=== PATIENT | female | born 1965 | race Caucasian/White ===

== ENCOUNTER 2016-12-08 19:27 | Emergency (ER) | payer BC, OTHER ==
--- NOTE | 2016-12-08 20:29 | EDDOCDS ---
Nurse's Notes [facility] Name: Makenzie Koenig Age: 51 yrs Sex: Female : 1965 Arrival Date: 12/08/2016 Time: 19:27 Bed TR7 Private MD: Jared Rosas H. Diagnosis: Acute upper respiratory infections of multiple and unspecified sites;Viral infection, unspecified Presentation: 12/08 19:38 Presenting complaint: Patient states: throat pain, sinus pain, cough since 11/24. Pt ttb was on Levaquin with little improvement. States, "crackles in bases". Adult Sepsis Screening: The patient does not have new or worsening altered mentation. Patient's respiratory rate is less than 22. Systolic blood pressure is greater than 100. Patient has a qSOFA score of 0- Negative Sepsis Screen. Suicide/Homicide risk assessment- the patient denies having any suicidal and/or homicidal ideations and does not present with any other emotional, behavioral or mental health complaints. Status: Patient is not a assistant service manager or dependent. Transition of care: patient was not received from another setting of care. 19:38 Acuity: TREMAINE Level 4 ttb 19:38 Method Of Arrival: Walkin/Carried/Asstd ttb Triage Assessment: 19:41 General: Appears in no apparent distress, uncomfortable, well nourished, well groomed, ttb Behavior is appropriate for age, cooperative, pleasant. Pain: Denies pain. HIV screening NA for this visit Offered previously. Neurological: Level of Consciousness is awake, alert. EENT: Reports nasal congestion nasal discharge. Cardiovascular: Chest pain is denied. Respiratory: Airway is patent Respiratory effort is even, shallow, Reports shortness of breath on exertion cough that is non-productive, the patient has mild shortness of breath. Respiratory: Onset: The symptoms/episode began/occurred end of October. GI: Denies nausea, vomiting, pain. Derm: Skin is normal. 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 Levaquin 500 mg Oral tab 1 tab once daily (Last dose: 12/08/2016 14:00) 2. lisinopril-hydrochlorothiazide 10-12.5 mg oral tab 1 tab once daily (Last dose: 12/08/2016 17:00) 3. multivitamin Oral tab 1 tab daily (Last dose: 12/08/2016) 4. Calcium Citrate Unknown Oral Unknown daily (Last dose: 12/08/2016 07:00) 5. ibuprofen 600 mg oral tab every 6 hours (Last dose: 12/08/2016 15:00) - PMHx: Hypertension; Pneumonia; - PSHx: none; - Social history: Smoking status: Patient states was never smoker of tobacco. Patient uses alcohol occasionally. Patient/guardian denies using street drugs, No barriers to communication noted, The patient speaks fluent Greek, Speaks appropriately for age. - Family history: Not pertinent. - : The pt / caregiver states he / she is not on anticoagulants. Home medication list is obtained from the patient. - Exposure Risk Screening:: None identified. Screenin:27 Screening information is obtained from the patient. Fall risk: No risks identified. jf3 Assistance ADL's: requires no assistance with activities of daily living. Abuse/DV Screen: The patient / caregiver reports he/she is: not in a situation that causes fear, pain or injury. Nutritional screening: No deficits noted. Advance Directives: Currently, there is no health care proxy. home support is adequate. Assessment: 20:27 General: Appears in no apparent distress, comfortable, Behavior is cooperative. jf3 Neurological: Level of Consciousness is awake, alert, Oriented to person, place, time. Cardiovascular: Capillary refill < 3 seconds Chest pain is denied. Respiratory: Airway is patent Respiratory effort is even, unlabored, Respiratory pattern is regular, symmetrical. Derm: Skin is pink, warm & dry. Vital Signs: 19:29 BP 167 / 109 LA Sitting (auto/reg); Pulse 85; Resp 18; Temp 98.8(O); Pulse Ox 100% ; cmb Weight 77.11 kg; Height 5 ft. 3 in. (160.02 cm); Pain 0/10; 19:29 BP 171 / 87 RA Sitting (auto/); cmb 19:29 Body Mass Index 30.11 (77.11 kg, 160.02 cm) cmb Vitals: 19:29 Log In Time: December 08, 2016 at 19:27. cmb ED Course: 19:28 Patient visited by Yadira Simon. cmb 19:28 Patient moved to Waiting cmb 19:29 Jared Rosas is Private Physician. cmb 19:32 Patient moved to Pre RCE cmb 19:39 Triage Initiated ttb 19:43 Patient visited by Nelida Marie, EVITA. ttb 19:43 Chris Mckee PA is PHCP. btw 19:43 Dylan Miranda MD is Attending Physician. btw 19:43 Patient moved to Triage 3 ttb 19:44 Attending Physician role handed off by Dylan Miranda MD btw 19:44 Elif Sparks MD is Attending Physician. btw 19:44 Patient visited by Chris Mckee PA. btw 19:58 Jared Rosas is Referral Physician. btw 20:21 Patient moved to TR7 jf3 20:27 The patient / caregiver is instructed regarding the plan of care and ED course. jf3 20:27 No IV's were initiated during this patient's visit. No procedures done that require jf3 assistance. Order Results: There are currently no results for this order. Outcome: 19:59 Discharge ordered by Provider. btw 20:27 Discharge Assessment: Patient awake, alert and oriented x 3. No cognitive and/or jf3 functional deficits noted. Patient verbalized understanding of disposition instructions. patient administered narcotics - no. The following High Risk Discharge criteria are identified: None. Condition: good. Discharge instructions given to patient, Instructed on discharge instructions, follow up and referral plans. medication usage, Demonstrated understanding of instructions, medications, Pt was receptive of discharge instructions/ teaching. No special radiology studies were completed. Property :Personal belongings accompany Pt. 20:28 Patient left the ED. jf3 Signatures: Chris Mckee PA PA btw Yadira Simon cmb Neliad Marie RN RN ttb Víctor Riley RN RN jf3 MTDD
--- NOTE | 2016-12-08 20:29 | EDDOCDS ---
Physician Documentation [facility] Name: Makenzie Koenig Age: 51 yrs Sex: Female : 1965 Arrival Date: 12/08/2016 Time: 19:27 Bed TR7 Private MD: Jared Rosas H. Disposition: 12/08/16 19:59 Discharged to Home/Self Care. Impression: Acute upper respiratory infections of multiple and unspecified sites, Viral infection, unspecified. - Condition is Stable. - Discharge Instructions: Cool Mist Vaporizers, Upper Respiratory Infection, Adult, Kmxe-vq-Hxks, Viral Infections, Wket-Bi-Opgl. - Prescriptions for benzonatate 200 mg Oral Capsule - take 1 capsule by ORAL route 3 times per day As needed; 30 capsule. azelastine 137 mcg (0.1 %) Nasal Aerosol, [place] - spray 2 spray by INTRANASAL route 2 times per day each nostril; 1 bottle. - Medication Reconciliation, Local Pharmacy Hours form. - Follow up: Jared Rosas; When: 1 - 2 days; Reason: Further diagnostic work-up, Recheck today's complaints, Continuance of care. - Problem is an ongoing problem. - Symptoms are unchanged. Historical: - Allergies: PENICILLINS; Omnicef; Keflex; Codeine Sulfate; clams; - Home Meds: 1. Levaquin 500 mg Oral tab 1 tab once daily (Last dose: 12/08/2016 14:00) 2. lisinopril-hydrochlorothiazide 10-12.5 mg oral tab 1 tab once daily (Last dose: 12/08/2016 17:00) 3. multivitamin Oral tab 1 tab daily (Last dose: 12/08/2016) 4. Calcium Citrate Unknown Oral Unknown daily (Last dose: 12/08/2016 07:00) 5. ibuprofen 600 mg oral tab every 6 hours (Last dose: 12/08/2016 15:00) - PMHx: Hypertension; Pneumonia; - PSHx: none; - Social history: Smoking status: Patient states was never smoker of tobacco. Patient uses alcohol occasionally. Patient/guardian denies using street drugs, No barriers to communication noted, The patient speaks fluent Khmer, Speaks appropriately for age. - Family history: Not pertinent. - : The pt / caregiver states he / she is not on anticoagulants. Home medication list is obtained from the patient. - Exposure Risk Screening:: None identified. 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 3 in. (160.02 cm); Pain 0/10; 19:29 BP 171 / 87 RA Sitting (auto/); cmb 19:29 Body Mass Index 30.11 (77.11 kg, 160.02 cm) cmb MDM: 20:25 Financial registration complete. zo Signatures: Carlos Amanda Brandon, PA PA btw Conner, Teresa RN RN ttb Víctor Riley RN RN jf3 ERIND
--- NOTE | 2016-12-10 21:30 | EDDOCDS ---
Physician Documentation [facility] Name: Makenzie Koenig Age: 51 yrs Sex: Female : 1965 Arrival Date: 12/08/2016 Time: 19:27 Bed TR7 Private MD: Jared Rosas H. Disposition: 12/08/16 19:59 Discharged to Home/Self Care. Impression: Acute upper respiratory infections of multiple and unspecified sites, Viral infection, unspecified. - Condition is Stable. - Discharge Instructions: Cool Mist Vaporizers, Upper Respiratory Infection, Adult, Ejau-ui-Ozen, Viral Infections, Wazf-Nd-Rdce. - Prescriptions for benzonatate 200 mg Oral Capsule - take 1 capsule by ORAL route 3 times per day As needed; 30 capsule. azelastine 137 mcg (0.1 %) Nasal Aerosol, [place] - spray 2 spray by INTRANASAL route 2 times per day each nostril; 1 bottle. - Medication Reconciliation, Local Pharmacy Hours form. - Follow up: Jared Rosas; When: 1 - 2 days; Reason: Further diagnostic work-up, Recheck today's complaints, Continuance of care. - Problem is an ongoing problem. - Symptoms are unchanged. Historical: - Allergies: PENICILLINS; Omnicef; Keflex; Codeine Sulfate; clams; - Home Meds: 1. Levaquin 500 mg Oral tab 1 tab once daily (Last dose: 12/08/2016 14:00) 2. lisinopril-hydrochlorothiazide 10-12.5 mg oral tab 1 tab once daily (Last dose: 12/08/2016 17:00) 3. multivitamin Oral tab 1 tab daily (Last dose: 12/08/2016) 4. Calcium Citrate Unknown Oral Unknown daily (Last dose: 12/08/2016 07:00) 5. ibuprofen 600 mg oral tab every 6 hours (Last dose: 12/08/2016 15:00) - PMHx: Hypertension; Pneumonia; - PSHx: none; - Social history: Smoking status: Patient states was never smoker of tobacco. Patient uses alcohol occasionally. Patient/guardian denies using street drugs, No barriers to communication noted, The patient speaks fluent Indonesian, Speaks appropriately for age. - Family history: Not pertinent. - : The pt / caregiver states he / she is not on anticoagulants. Home medication list is obtained from the patient. - Exposure Risk Screening:: None identified. 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 3 in. (160.02 cm); Pain 0/10; 19:29 BP 171 / 87 RA Sitting (auto/); cmb 19:29 Body Mass Index 30.11 (77.11 kg, 160.02 cm) cmb MDM: 20:25 Financial registration complete. zo :33 [facility] Payment Agreement was scanned into [employer] and attached to record. zo 12/09 09:15 T-Sheet-- Draft Copy was scanned into [employer] and attached to record. gb Signatures: Allie Castro, Reg Reg gb Carlos Amanda zo Chris Mckee PA PA btw Nelida Marie RN RN ttb Víctor Riley RN RN jf3 The chart was reviewed and I authenticate all verbal orders and agree with the evaluation and treatment provided.Attachments: 12/08 20:33 [facility] Payment Agreement zo 12/09 09:15 T-Sheet-- Draft Copy gb Chart Complete MTDD
--- NOTE | 2016-12-10 21:30 | EDDOCDS ---
Physician Documentation [facility] Name: Makenzie Koenig Age: 51 yrs Sex: Female : 1965 Arrival Date: 12/08/2016 Time: 19:27 Bed TR7 Private MD: Jared Rosas H. Disposition: 12/08/16 19:59 Discharged to Home/Self Care. Impression: Acute upper respiratory infections of multiple and unspecified sites, Viral infection, unspecified. - Condition is Stable. - Discharge Instructions: Cool Mist Vaporizers, Upper Respiratory Infection, Adult, Haao-xp-Izsq, Viral Infections, Pzpr-Zx-Nctu. - Prescriptions for benzonatate 200 mg Oral Capsule - take 1 capsule by ORAL route 3 times per day As needed; 30 capsule. azelastine 137 mcg (0.1 %) Nasal Aerosol, [place] - spray 2 spray by INTRANASAL route 2 times per day each nostril; 1 bottle. - Medication Reconciliation, Local Pharmacy Hours form. - Follow up: Jared Rosas; When: 1 - 2 days; Reason: Further diagnostic work-up, Recheck today's complaints, Continuance of care. - Problem is an ongoing problem. - Symptoms are unchanged. Historical: - Allergies: PENICILLINS; Omnicef; Keflex; Codeine Sulfate; clams; - Home Meds: 1. Levaquin 500 mg Oral tab 1 tab once daily (Last dose: 12/08/2016 14:00) 2. lisinopril-hydrochlorothiazide 10-12.5 mg oral tab 1 tab once daily (Last dose: 12/08/2016 17:00) 3. multivitamin Oral tab 1 tab daily (Last dose: 12/08/2016) 4. Calcium Citrate Unknown Oral Unknown daily (Last dose: 12/08/2016 07:00) 5. ibuprofen 600 mg oral tab every 6 hours (Last dose: 12/08/2016 15:00) - PMHx: Hypertension; Pneumonia; - PSHx: none; - Social history: Smoking status: Patient states was never smoker of tobacco. Patient uses alcohol occasionally. Patient/guardian denies using street drugs, No barriers to communication noted, The patient speaks fluent South Korean, Speaks appropriately for age. - Family history: Not pertinent. - : The pt / caregiver states he / she is not on anticoagulants. Home medication list is obtained from the patient. - Exposure Risk Screening:: None identified. 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 3 in. (160.02 cm); Pain 0/10; 19:29 BP 171 / 87 RA Sitting (auto/); cmb 19:29 Body Mass Index 30.11 (77.11 kg, 160.02 cm) cmb MDM: 20:25 Financial registration complete. zo :33 [facility] Payment Agreement was scanned into [employer] and attached to record. zo 12/09 09:15 T-Sheet-- Draft Copy was scanned into [employer] and attached to record. gb Signatures: Allie Castro, Reg Reg gb Carlos Amanda zo Chris Mckee PA PA btw Nelida Marie RN RN ttb Víctor Riley RN RN jf3 The chart was reviewed and I authenticate all verbal orders and agree with the evaluation and treatment provided.Attachments: 12/08 20:33 [facility] Payment Agreement zo 12/09 09:15 T-Sheet-- Draft Copy gb Chart Complete MTDD
--- NOTE | 2016-12-10 21:30 | EDDOCDS ---
Nurse's Notes [facility] Name: Makenzie Koenig Age: 51 yrs Sex: Female : 1965 Arrival Date: 12/08/2016 Time: 19:27 Bed TR7 Private MD: Jared Rosas H. Diagnosis: Acute upper respiratory infections of multiple and unspecified sites;Viral infection, unspecified Presentation: 12/08 19:38 Presenting complaint: Patient states: throat pain, sinus pain, cough since 11/24. Pt ttb was on Levaquin with little improvement. States, "crackles in bases". Adult Sepsis Screening: The patient does not have new or worsening altered mentation. Patient's respiratory rate is less than 22. Systolic blood pressure is greater than 100. Patient has a qSOFA score of 0- Negative Sepsis Screen. Suicide/Homicide risk assessment- the patient denies having any suicidal and/or homicidal ideations and does not present with any other emotional, behavioral or mental health complaints. Status: Patient is not a service tech or dependent. Transition of care: patient was not received from another setting of care. 19:38 Acuity: TREMAINE Level 4 ttb 19:38 Method Of Arrival: Walkin/Carried/Asstd ttb Triage Assessment: 19:41 General: Appears in no apparent distress, uncomfortable, well nourished, well groomed, ttb Behavior is appropriate for age, cooperative, pleasant. Pain: Denies pain. HIV screening NA for this visit Offered previously. Neurological: Level of Consciousness is awake, alert. EENT: Reports nasal congestion nasal discharge. Cardiovascular: Chest pain is denied. Respiratory: Airway is patent Respiratory effort is even, shallow, Reports shortness of breath on exertion cough that is non-productive, the patient has mild shortness of breath. Respiratory: Onset: The symptoms/episode began/occurred end of October. GI: Denies nausea, vomiting, pain. Derm: Skin is normal. 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 Levaquin 500 mg Oral tab 1 tab once daily (Last dose: 12/08/2016 14:00) 2. lisinopril-hydrochlorothiazide 10-12.5 mg oral tab 1 tab once daily (Last dose: 12/08/2016 17:00) 3. multivitamin Oral tab 1 tab daily (Last dose: 12/08/2016) 4. Calcium Citrate Unknown Oral Unknown daily (Last dose: 12/08/2016 07:00) 5. ibuprofen 600 mg oral tab every 6 hours (Last dose: 12/08/2016 15:00) - PMHx: Hypertension; Pneumonia; - PSHx: none; - Social history: Smoking status: Patient states was never smoker of tobacco. Patient uses alcohol occasionally. Patient/guardian denies using street drugs, No barriers to communication noted, The patient speaks fluent Mohawk, Speaks appropriately for age. - Family history: Not pertinent. - : The pt / caregiver states he / she is not on anticoagulants. Home medication list is obtained from the patient. - Exposure Risk Screening:: None identified. Screenin:27 Screening information is obtained from the patient. Fall risk: No risks identified. jf3 Assistance ADL's: requires no assistance with activities of daily living. Abuse/DV Screen: The patient / caregiver reports he/she is: not in a situation that causes fear, pain or injury. Nutritional screening: No deficits noted. Advance Directives: Currently, there is no health care proxy. home support is adequate. Assessment: 20:27 General: Appears in no apparent distress, comfortable, Behavior is cooperative. jf3 Neurological: Level of Consciousness is awake, alert, Oriented to person, place, time. Cardiovascular: Capillary refill < 3 seconds Chest pain is denied. Respiratory: Airway is patent Respiratory effort is even, unlabored, Respiratory pattern is regular, symmetrical. Derm: Skin is pink, warm & dry. Vital Signs: 19:29 BP 167 / 109 LA Sitting (auto/reg); Pulse 85; Resp 18; Temp 98.8(O); Pulse Ox 100% ; cmb Weight 77.11 kg; Height 5 ft. 3 in. (160.02 cm); Pain 0/10; 19:29 BP 171 / 87 RA Sitting (auto/); cmb 19:29 Body Mass Index 30.11 (77.11 kg, 160.02 cm) cmb Vitals: 19:29 Log In Time: December 08, 2016 at 19:27. cmb ED Course: 19:28 Patient visited by Yadira Simon. cmb 19:28 Patient moved to Waiting cmb 19:29 Jared Rosas is Private Physician. cmb 19:32 Patient moved to Pre RCE cmb 19:39 Triage Initiated ttb 19:43 Patient visited by Nelida Marie, EVITA. ttb 19:43 Chris Mckee PA is PHCP. btw 19:43 Dylan Miranda MD is Attending Physician. btw 19:43 Patient moved to Triage 3 ttb 19:44 Attending Physician role handed off by Dylan Miranda MD btw 19:44 Elif Sparks MD is Attending Physician. btw 19:44 Patient visited by Chris Mckee PA. btw 19:58 Jared Rosas is Referral Physician. btw 20:21 Patient moved to TR7 jf3 20:27 The patient / caregiver is instructed regarding the plan of care and ED course. jf3 20:27 No IV's were initiated during this patient's visit. No procedures done that require jf3 assistance. 20:33 [facility] Payment Agreement was scanned into [employer] and attached to record. zo 01 09:15 T-Sheet-- Draft Copy was scanned into [employer] and attached to record. gb Order Results: There are currently no results for this order. Outcome: 12/08 19:59 Discharge ordered by Provider. btw 20:27 Discharge Assessment: Patient awake, alert and oriented x 3. No cognitive and/or jf3 functional deficits noted. Patient verbalized understanding of disposition instructions. patient administered narcotics - no. The following High Risk Discharge criteria are identified: None. Condition: good. Discharge instructions given to patient, Instructed on discharge instructions, follow up and referral plans. medication usage, Demonstrated understanding of instructions, medications, Pt was receptive of discharge instructions/ teaching. No special radiology studies were completed. Property :Personal belongings accompany Pt. 20:28 Patient left the ED. jf3 Signatures: Allie Csatro, Carlos Ambriz Brandon, PA PA btw Yadira Simon cmb Nelida Marie, EVITA RN ttb Víctor Riley RN RN jf3 Chart Complete MTDD
== END 2016-12-08 20:28 | disposition home or self-care (01) ==
LOC: M ED 19:27
DX: J06.9 Acute upper respiratory infection, unspecified (principal); I10 Essential (primary) hypertension; Z79.899 Other long term (current) drug therapy; Z88.0 Allergy status to penicillin; Z88.1 Allergy status to other antibiotic agents; Z88.5 Allergy status to narcotic agent; Z91.013 Allergy to seafood

== ENCOUNTER 2017-08-24 07:22 | Emergency (ER) | payer OTHER ==
[~2017-08-24] VITALS: Ht 160 cm; Wt 77.3 kg
[2017-08-24] MEDS ORDERED: LOSA100T36 PO (07:34)
--- NOTE | 2017-08-24 08:17 | REP ---
Clinical: Syncope . Comparison: 01/29/2014 . Findings: The ventricles, sulci, and cisterns are normal in position and appearance. Wilson-white differentiation is maintained. No acute intracranial hemorrhage, mass/mass effect, pathology or trauma/injury. No evidence for acute infarction. No extra-axial fluid collection. Calvarium is intact. Paranasal sinuses and mastoid air cells are clear. Incidental note is made of cavum septum pellucidum/cavum vergae. Impression: Normal noncontrast head CT. No evidence for acute intracranial pathology or trauma/injury. Signed by Javier Reed MD 08/24/2017 08:09 A
[2017-08-24 08:23] LABS: BASO # 0.1 10^3/uL (0.0-0.2); BASO % 1.3 % (0.0-1.0); EOS # 0.3 10^3/uL (0.0-0.50); EOS % 4.3 % (0.0-3.0); IMMATURE GRANULOCYTE % 0.3 % (0-0); LYMPH # 1.9 10^3/uL (1.5-4.5); MEAN CORPUSCULAR HEMOGLOBIN 31.5 pg (27.0-33.0); MEAN CORPUSCULAR HGB CONC 34.8 g/dl (32.0-36.5); MEAN CORPUSCULAR VOLUME 90.4 fl (80.0-96.0); MONO # 0.5 10^3/uL (0.0-0.8); MONO % 6.5 % (0.0-5.0); NEUTROPHILS # 4.1 10^3/uL (1.8-7.7); NEUTROPHILS % 59.6 % (36.0-66.0); PLATELET COUNT, AUTOMATED 279 10^3/uL (150-450); RED CELL DISTRIBUTION WIDTH 12.9 % (11.5-14.5); WHITE BLOOD COUNT 6.9 10^3/uL (4.0-10.0)
--- NOTE | 2017-08-24 08:43 | REP ---
PA and lateral chest: Comparison is 01/06/2015. The lung bernstein are clear. The cardiac size is normal The sunita, mediastinum, and bony thorax are unremarkable. Impression: Negative PA and lateral chest. There is no interval change. Signed by Terence Gallagher MD 08/24/2017 08:34 A
[2017-08-24 08:54] LABS: ANION GAP 6 MEQ/L (8-16); BLOOD UREA NITROGEN 11 MG/DL (7-18); CALCIUM LEVEL 9.5 MG/DL (8.5-10.1); CARBON DIOXIDE LEVEL 28 MEQ/L (21-32); CHLORIDE LEVEL 105 MEQ/L (98-107); GLOMERULAR FILTRATION RATE > 60.0 (>51); GLUCOSE, FASTING 112 MG/DL (70-105); MAGNESIUM LEVEL 2.2 MG/DL (1.8-2.4); POTASSIUM SERUM 3.4 MEQ/L (3.5-5.1); SODIUM LEVEL 139 MEQ/L (136-145)
--- NOTE | 2017-08-24 09:33 | ECGEPIP ---
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
--- NOTE | 2017-08-24 13:02 | REP ---
Left lower extremity Duplex Doppler venous ultrasound: Real time compression and duplex Doppler interrogation of the left lower extremity deep venous system is performed. The left common femoral, superficial femoral and popliteal veins are fully compressible with transducer pressure and demonstrate normal spontaneous and phasic flow, without evidence of deep venous thrombosis. Impression: No evidence of deep venous thrombosis of the left lower extremity femoral popliteal venous system. Signed by Terence Wilson MD 08/24/2017 12:53 P
[2017-08-24] MEDS ORDERED: AMLO25TA PO (14:24)
[2017-08-24 14:51] VITALS: BP 136/99
== END 2017-08-24 14:53 | disposition home or self-care (01) ==
LOC: M ED 07:22
DX: I10 Essential (primary) hypertension (principal); Z79.899 Other long term (current) drug therapy; Z91.013 Allergy to seafood; Z88.5 Allergy status to narcotic agent; Z88.0 Allergy status to penicillin; Z88.8 Allergy status to other drugs, medicaments and biological substances; Z98.890 Other specified postprocedural states; Z87.891 Personal history of nicotine dependence; Z82.49 Family history of ischemic heart disease and other diseases of the circulatory system

== ENCOUNTER → 2018-01-01 | Outpatient (REF) | payer OTHER, BC ==
[2018-01-01 14:51] LABS: INFLUENZA A AMPLIFICATION NEGATIVE (NEGATIVE); INFLUENZA B AMPLIFICATION NEGATIVE (NEGATIVE); RSV AMPLIFICATION NEGATIVE (NEGATIVE)
== END ==
LOC: M LAB REF 10:22
DX: J11.1 Influenza due to unidentified influenza virus with other respiratory manifestations (principal)

== ENCOUNTER → 2019-01-10 | Outpatient (CLI) | payer BC ==
[~2019-01-10] MED LIST: AMLO25TA PO; LOSA100T50 PO
--- NOTE | 2019-01-10 16:04 | REPMRS ---
Patient History The patient states she had a clinical breast exam in 01/16 Family history of unknown cancer at age 62 in mother, unknown cancer at age 83 in father, unknown cancer under age 50 in maternal uncle. Implants in both breasts, 2002. 3D TOMOSYNTHESIS WAS PERFORMED. Digital Woman Screen Mammo: January 10, 2019 - Exam #: [id number] Bilateral MLO, CC, CCID, and MLOID view(s) were taken. Technologist: Susanne Gunter, Technologist Prior study comparison: May 14, 2016, digital woman screen mammo performed at [facility] [employer]. August 28, 2012, digital woman screen mammo performed at [facility]. FINDINGS: The breast tissue is heterogeneously dense. This may lower the sensitivity of mammography. There has been no change in the appearance of the mammogram from the prior studies. There is a moderate amount of residual fibroglandular tissue which is fairly symmetric. There is no interval development of dominant mass, areas of architectural distortion, or clustered microcalcification typical of malignancy. Assessment: BI-RADS/ACR category 1 mammogram. Negative Mammogram. Recommendation Routine screening mammogram in 1 year (for women over age 40). This mammogram was interpreted with the aid of an FDA-approved computer-aided dectection system. Electronically Signed By: Terence Wilson MD 01/10/19 [id number]
== END ==
LOC: M WHC 14:28
PROVIDERS: ATTEND Nurse Practitioner Family
DX: Z12.31 Encounter for screening mammogram for malignant neoplasm of breast (principal); Z80.9 Family history of malignant neoplasm, unspecified

== ENCOUNTER → 2019-01-10 | Outpatient (REF) | payer BC ==
[2019-01-10 21:01] LABS: CHLAMYDIA DNA AMPLIFICATION NEGATIVE (NEGATIVE); GC DNA AMPLIFICATION NEGATIVE (NEGATIVE)
[2019-01-12 16:13] LABS: HPV HYBRID CAPTURE II Negative (Negative)
== END ==
LOC: M SFHCWAGY 14:58
PROVIDERS: ATTEND Nurse Practitioner Family
DX: Z12.4 Encounter for screening for malignant neoplasm of cervix (principal); Z11.3 Encounter for screening for infections with a predominantly sexual mode of transmission; Z11.51 Encounter for screening for human papillomavirus (HPV)
CPT/HCPCS: 87491; 87591; 87624; G0123

== ENCOUNTER → 2019-05-04 | Outpatient (REF) | payer BC ==
[2019-05-04 17:20] LABS: CHLAMYDIA DNA AMPLIFICATION NEGATIVE (NEGATIVE); GC DNA AMPLIFICATION NEGATIVE (NEGATIVE)
== END ==
LOC: M SFHCWAGY 15:30
PROVIDERS: ATTEND Nurse Practitioner Family
DX: Z11.3 Encounter for screening for infections with a predominantly sexual mode of transmission (principal)

== ENCOUNTER → 2019-05-13 | Outpatient (REF) | payer BC | LOC: M LAB REF 10:47 | PROVIDERS: ATTEND Nurse Practitioner Family | DX: J02.9 Acute pharyngitis, unspecified (principal) ==

== ENCOUNTER 2019-10-15 09:44 | Emergency (ER) | payer BC ==
[~2019-10-15] VITALS: Ht 160 cm; Wt 77.3 kg
[2019-10-15] MEDS ORDERED: AMLO25TA PO (09:57)
[2019-10-15 10:47] LABS: APPEARANCE, URINE CLOUDY (CLEAR); BACTERIA, URINE AUTO 1+ (NEGATIVE); BASO # 0.1 10^3/uL (0.0-0.2); BASO % 0.5 % (0.0-1.0); BILIRUBIN, URINE AUTO NEGATIVE (NEGATIVE); BLOOD, URINE BLOOD NEGATIVE (NEGATIVE); COLOR, URINE AMBER (YELLOW); EOS # 0.3 10^3/uL (0.0-0.5); EOS % 1.7 % (0.0-3.0); GLUCOSE, URINE (UA) AUTO NEGATIVE (NEGATIVE); HEMATOCRIT 43.6 % (36.0-47.0); HEMOGLOBIN 15.5 g/dl (12.0-15.5); KETONE, URINE AUTO NEGATIVE (NEGATIVE); LEUKOCYTE ESTERASE, URINE AUTO TRACE (NEGATIVE); LYMPH # 2.2 10^3/uL (1.5-5.0); LYMPH % 14.9 % (24.0-44.0); MEAN CORPUSCULAR HEMOGLOBIN 32.6 pg (27.0-33.0); MEAN CORPUSCULAR HGB CONC 35.6 g/dl (32.0-36.5); MEAN CORPUSCULAR VOLUME 91.8 fl (80.0-96.0); MONO # 0.8 10^3/uL (0.0-0.8); MONO % 5.2 % (0.0-5.0); MUCUS, URINE MODERATE (NEGATIVE); NEUTROPHILS # 11.4 10^3/uL (1.5-8.5); NEUTROPHILS % 77.4 % (36.0-66.0); NITRITE, URINE AUTO NEGATIVE (NEGATIVE); PLATELET COUNT, AUTOMATED 284 10^3/uL (150-450); PROTEIN, URINE AUTO 1+ mg/dL (NEGATIVE); RBC, URINE AUTO 3 /HPF (0-3); RED BLOOD COUNT 4.75 10^6/uL (4.00-5.40); SPECIFIC GRAVITY URINE AUTO 1.021 (1.002-1.035); SQUAMOUS EPITHELIAL CELL UR AU 28 /HPF (0-6); UROBILINOGEN, URINE AUTO 0.2 mg/dL (0.0-2.0); WBC, URINE AUTO 17 /HPF (0-3); WHITE BLOOD COUNT 14.7 10^3/uL (4.0-10.0)
[2019-10-15 11:17] LABS: ALBUMIN 3.8 GM/DL (3.2-5.2); ALT/SGPT 76 U/L (12-78); AMYLASE 31 U/L (25-115); BILIRUBIN,DIRECT 0.3 MG/DL (0.0-0.2); BILIRUBIN,TOTAL 1.8 MG/DL (0.2-1.0); LIPASE 107 U/L (73-393)
[2019-10-15 11:21] LABS: HCG, SERUM QUALITATIVE NEGATIVE (NEGATIVE)
[2019-10-15] MEDS ORDERED: PANTOPRAZOLE 40MG INJ (PROTONIX) (C9113) IV ONE (11:30)
[2019-10-15] MEDS ORDERED: NS 1,000 ML IV ONE (11:30)
[2019-10-15] MEDS ORDERED: KETOROLAC 30 MG/ML VIAL (J1885) IV ONE (11:30)
[2019-10-15] MEDS ORDERED: ISOVUE-370 76% 100ML VIAL (Q9967) As Ordered ONE (12:31)
--- NOTE | 2019-10-15 13:13 | REP ---
CT abdomen and pelvis with IV but without oral contrast: History: Right upper quadrant pain. Elevated bilirubin. Diarrhea. Distension. No comparison abdominal imaging. CT contrast dose: 100 mL of intravenous Isovue [address] findings: Digital preliminary calliope player radiograph demonstrates an unremarkable gas pattern with scattered small and large bowel loops containing air. No discernible formed stool. The lung bases show mild linear discoid atelectasis or fibrosis bilaterally. The patient is status post bilateral breast augmentation. There is mild diffuse fatty infiltration of the liver. No abnormality is noted in the gallbladder. Normal adrenal glands are seen bilaterally. There are two accessory splenules. No splenic abnormality is seen. The kidneys enhance symmetrically. There is a lower pole cyst on the right measuring 6.4 cm in greatest diameter. This is a simple cyst by CT criteria. There is a tiny parapelvic cyst in the upper pole of the right kidney. No hydronephrosis is seen on either side. No calculus is observed. There is some mild to moderate left colonic diverticulosis in the sigmoid colon. Scattered diverticula are seen in the splenic flexure. There is no CT evidence of diverticulitis. The right colon is abnormal however with moderate mural thickening in the cecum and ascending colon extending to the hepatic flexure and proximal transverse segment. There is pericolonic edema associated with the mural thickening and the findings are consistent with enterocolitis versus inflammatory bowel disease. A normal appendix is observed apparently uninvolved. The distal ileum appears uninvolved as well. There is a small umbilical hernia transmitting a small quantity of abdominal fat. No other abdominal wall defect is seen. No uterine or significant ovarian abnormality is seen. There is a tiny right ovarian cyst, 1.3 cm in diameter. No free fluid. Urinary bladder is unremarkable. Impression: 1. Enterocolitis versus inflammatory bowel disease picture affecting the cecum, ascending colon, and hepatic flexure region of the colon with pericolonic streaking and mural thickening. There is some submucosal fat in this portion of the colon as well, this can be a feature of inflammatory bowel disease. 2. Fatty infiltration of the liver. 3. Small umbilical hernia transmitting abdominal fat. 4. 6.4 cm simple cyst lower pole right kidney. Electronically Signed by Omid Reed MD 10/15/2019 01:39 P
[2019-10-15] MEDS ORDERED: ACETAMINOPHEN 325 MG TAB PO ONE (14:15)
[2019-10-15] MEDS ORDERED: CIPROFLOXACIN 500 MG TAB PO ONE (14:15)
[2019-10-15] MEDS ORDERED: metroNIDAZOLE (FLAGYL) 500 MG TAB PO ONE (14:15)
[2019-10-15] MEDS ORDERED: TRAM50TA2 PO (15:26)
[2019-10-15] MEDS ORDERED: CIPR-249 PO (15:26)
[2019-10-15] MEDS ORDERED: FLAG500T PO (15:26)
[2019-10-15 15:32] VITALS: BP 150/91
--- NOTE | 2019-10-17 14:22 | ED PDOC ---
Post-Departure Follow-Up dr martinez faxed formal report of ct abd/p for fu Dylan Cordero MD Oct 17, 2019 14:22
== END 2019-10-15 15:52 | disposition home or self-care (01) ==
LOC: M ED 09:44
DX: K52.9 Noninfective gastroenteritis and colitis, unspecified (principal); I10 Essential (primary) hypertension; Z98.890 Other specified postprocedural states; Z88.0 Allergy status to penicillin; Z88.1 Allergy status to other antibiotic agents; Z88.5 Allergy status to narcotic agent; Z91.013 Allergy to seafood; Z79.899 Other long term (current) drug therapy
CPT/HCPCS: 74177; 80047; 80076; 81001; 82150; 83690; 84702; 84703; 85025; 96374; 96375; 99284; C9113; J1885; Q9967

== ENCOUNTER → 2019-10-23 | Outpatient (REF) | payer BC ==
[~2019-10-23] MED LIST changes: +CIPR-249 PO; +FLAG500T PO; +TRAM50TA2 PO
== END ==
LOC: M LAB REF 09:44
PROVIDERS: ATTEND Internal Medicine
DX: A09 Infectious gastroenteritis and colitis, unspecified (principal)

== ENCOUNTER 2019-12-28 23:29 | Emergency (ER) | payer BC ==
[~2019-12-28] VITALS: Ht 160 cm; Wt 77.3 kg
[2019-12-29] MEDS ORDERED: amLODIPine 5 MG TAB PO ONE (00:30)
[2019-12-29 00:37] VITALS: BP 194/113
--- NOTE | 2019-12-29 01:00 | REPVR ---
PROCEDURE INFORMATION: Exam: CT Head Without Contrast Exam date and time: 12/29/2019 12:21 AM Age: 54 years old Clinical indication: Injury or trauma; Fall; Initial encounter; Concussion / head injury TECHNIQUE: Imaging protocol: Computed tomography of the head without contrast. Radiation optimization: All CT scans at this facility use at least one of these dose optimization techniques: automated exposure control; mA and/or kV adjustment per patient size (includes targeted exams where dose is matched to clinical indication); or iterative reconstruction. COMPARISON: CT Head without contrast 08/24/2017 7:53 AM FINDINGS: Brain: Normal. No hemorrhage. Unremarkable white matter. No mass effect. Ventricles: Normal. No ventriculomegaly. Bones/joints: Unremarkable. No acute fracture. Sinuses: Visualized sinuses are unremarkable. No fluid levels. Mastoid air cells: Visualized mastoid air cells are well aerated. Soft tissues: Unremarkable. IMPRESSION: No acute intracranial abnormality. Electronically signed by: Ashwin Ramesh On 12/29/2019 01:01:59 AM
--- NOTE | 2019-12-29 01:06 | REPVR ---
PROCEDURE INFORMATION: Exam: CT Cervical Spine Without Contrast Exam date and time: 12/29/2019 12:21 AM Age: 54 years old Clinical indication: Neck pain; Additional info: Trauma TECHNIQUE: Imaging protocol: Computed tomography images of the cervical spine without contrast. Radiation optimization: All CT scans at this facility use at least one of these dose optimization techniques: automated exposure control; mA and/or kV adjustment per patient size (includes targeted exams where dose is matched to clinical indication); or iterative reconstruction. COMPARISON: CT Spine,cervical w/o contrast 01/29/2014 4:10 PM FINDINGS: Vertebrae: No fracture or malalignment. Discs/Spinal canal/Neural foramina: Severe degenerative disc space narrowing and endplate degenerative changes at C5-6. No spinal stenosis. Soft tissues: Unremarkable. Lungs: Lung apices are normal. IMPRESSION: 1. No fracture or malalignment. 2. Mild degenerative spondylosis in the cervical spine. Electronically signed by: Ashwin Ramesh On 12/29/2019 01:07:21 AM
[2019-12-29] MEDS ORDERED: VITAD400CA FT (01:35)
[2019-12-29] MEDS ORDERED: VITA500C24 PO (01:35)
[2019-12-29] MEDS ORDERED: TH DTAB2 PO (01:35)
[2019-12-29 02:47] VITALS: BP_DIAS 88
[2019-12-29 03:13] VITALS: BP_SYST 148
--- NOTE | 2019-12-29 08:15 | REP ---
Left knee five views: There are no comparisons. There is no fracture or dislocation. There are no calcifications or foreign bodies. There is mild tricompartment osteoarthritis, most advanced in the medial compartment. There is a small joint effusion. Electronically Signed by Terence Gallagher MD 12/29/2019 08:06 A
--- NOTE | 2019-12-29 21:43 | ECGEPIP ---
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
== END 2019-12-29 03:14 | disposition home or self-care (01) ==
LOC: M ED 23:29
DX: S00.03XA Contusion of scalp, initial encounter (principal); S06.0X0A Concussion without loss of consciousness, initial encounter; S83.92XA Sprain of unspecified site of left knee, initial encounter; W00.0XXA Fall on same level due to ice and snow, initial encounter; Y92.9 Unspecified place or not applicable; Y93.9 Activity, unspecified; Y99.9 Unspecified external cause status; M25.462 Effusion, left knee; M47.812 Spondylosis without myelopathy or radiculopathy, cervical region; I10 Essential (primary) hypertension; Z88.0 Allergy status to penicillin; Z88.6 Allergy status to analgesic agent; Z88.8 Allergy status to other drugs, medicaments and biological substances; Z91.018 Allergy to other foods

== ENCOUNTER → 2020-01-21 | Outpatient (CLI) | payer BC ==
[~2020-01-21] MED LIST changes: +TH DTAB2 PO; +VITA500C24 PO; +VITAD400CA FT
--- NOTE | 2020-01-21 16:28 | REPMRS ---
Patient History The patient states she had a clinical breast exam in 2019. Family history of unknown cancer at age 62 in mother, unknown cancer at age 83 in father, unknown cancer under age 50 in maternal uncle. Implants in both breasts, 2002. Digital Woman Screen Mammo: January 21, 2020 - Exam #: [id number] Bilateral CC and MLO view(s) were taken. Technologist: Yarelis Sousa, Technologist Prior study comparison: January 10, 2019, bilateral digital woman screen mammo performed at [facility]. May 14, 2016, digital woman screen mammo performed at [facility]. FINDINGS: The breast tissue is heterogeneously dense. This may lower the sensitivity of mammography. The visualized implant margins are smooth. Breast parenchymal density pattern is essentially symmetric. No dominant mass, grouped microcalcification, or architectural distortion is evident on either side. 3-D tomosynthesis shows no additional findings. No significant changes when compared with prior studies. Assessment: BI-RADS/ACR category 2 mammogram. Benign Findings. Recommendation Routine screening mammogram of both breasts in 1 year (for women over age 40). This patient's Lifetime Breast Cancer RIsk is estimated at 9.3 %. This mammogram was interpreted with the aid of an FDA-approved computer-aided dectection system. Electronically Signed By: Robert Reed MD 01/21/20 3154
== END ==
LOC: M WHC 15:18
PROVIDERS: ATTEND Nurse Practitioner Family
DX: Z12.31 Encounter for screening mammogram for malignant neoplasm of breast (principal); Z98.82 Breast implant status

== ENCOUNTER → 2020-01-21 | Outpatient (REF) | payer BC | LOC: M SFHCWAGY 17:28 | PROVIDERS: ATTEND Nurse Practitioner Family | DX: Z12.4 Encounter for screening for malignant neoplasm of cervix (principal) ==

== ENCOUNTER 2020-01-22 15:55 | Outpatient (RCR) | payer BC | END 2020-01-26 | LOC: M PT 15:55 | PROVIDERS: ATTEND Orthopaedic Surgery | DX: S83.242A Other tear of medial meniscus, current injury, left knee, initial encounter (principal); M17.12 Unilateral primary osteoarthritis, left knee ==

== ENCOUNTER 2020-02-21 16:00 | Outpatient (RCR) | payer BC | END 2020-02-26 | LOC: M PT 16:00 | PROVIDERS: ATTEND Orthopaedic Surgery | DX: Z51.89 Encounter for other specified aftercare (principal); S83.242A Other tear of medial meniscus, current injury, left knee, initial encounter; M17.12 Unilateral primary osteoarthritis, left knee ==

== ENCOUNTER → 2020-03-27 | Outpatient (RCR) | payer BC | LOC: M PT 03-04 16:00 | PROVIDERS: ATTEND Orthopaedic Surgery | DX: M17.12 Unilateral primary osteoarthritis, left knee (principal) ==

== ENCOUNTER 2020-04-16 16:45 | Outpatient (RCR) | payer BC | END 2020-04-27 | LOC: M PT 16:45 | PROVIDERS: ATTEND Orthopaedic Surgery | DX: Z47.89 Encounter for other orthopedic aftercare (principal); M17.12 Unilateral primary osteoarthritis, left knee; S83.242A Other tear of medial meniscus, current injury, left knee, initial encounter | CPT/HCPCS: 97010; 97110; G0283 ==

== ENCOUNTER 2020-04-30 15:33 | Outpatient (RCR) | payer BC | END 2020-05-27 | LOC: M PT 15:33 | PROVIDERS: ATTEND Orthopaedic Surgery | DX: Z51.89 Encounter for other specified aftercare (principal); S83.242A Other tear of medial meniscus, current injury, left knee, initial encounter; M17.12 Unilateral primary osteoarthritis, left knee; X58.XXXA Exposure to other specified factors, initial encounter; Y92.89 Other specified places as the place of occurrence of the external cause; Y93.9 Activity, unspecified; Y99.9 Unspecified external cause status ==

== ENCOUNTER → 2020-10-08 | Outpatient (CLI) | payer OTHER, SELFPAY ==
--- NOTE | 2020-10-08 15:08 | REP ---
INDICATION: UNSPECIFIED ABDOMINAL PAIN. COMPARISON: Comparison CT study October 15, 2019.. TECHNIQUE: Complete transabdominal abdomen sonogram. FINDINGS: Scanning through the right upper quadrant of the abdomen demonstrates a normal sized and walled gallbladder without evidence of stone or polyp. Common bile duct is normal measuring 0.3 cm in greatest diameter. No focal liver lesion is appreciated. The liver is somewhat echogenic question fatty infiltration. No focal liver lesion is seen. No abnormality is noted in the pancreas. A normal caliber aorta is observed. Scanning in the left upper quadrant demonstrates a normal sized, 11 cm, homogeneous spleen. There is no evidence of ascites. There is a simple appearing cyst in the lower pole of the right kidney measuring 5.8 x 5.3 x 6.0 cm. Right renal dimensions are 13.2 x 6.7 x 4.5 cm. Left kidney measures 10.7 x 5.0 x 4.7 cm. The right renal cyst is unchanged from comparison CT study. IMPRESSION: 6.0 cm cyst lower pole right kidney. Echogenic liver parenchyma question fatty infiltration. Otherwise negative complete abdominal sonography. <Electronically signed by Robert Reed > 10/08/20 [id number]
== END ==
LOC: M RAD 07:02
PROVIDERS: ATTEND Physician Assistant
DX: N28.1 Cyst of kidney, acquired (principal); R10.9 Unspecified abdominal pain

== ENCOUNTER → 2020-10-13 | Outpatient (CLI) | payer BC, OTHER ==
[~2020-10-13] MED LIST changes: +E-Z-GAS II EFFERVESCENT PACKET (SODIUM BICARB./CITRIC ACID/SIMETHICONE) As Ordered ONE; +E-Z-HD 98% w/w 340GM SUSP BTL As Ordered ONE; +E-Z-PAQUE 96% w/w SUSP 176GM BTL As Ordered ONE
--- NOTE | 2020-10-13 18:29 | REP ---
INDICATION: ABD PAIN LUQ, RUQ/LT FLANK TENDERNESS. COMPARISON: None TECHNIQUE: This procedure was performed by Lisa Lott RUST, under the direct supervision of Dr. Wilson. Images were reviewed with Dr. Wilson prior to dictation. Liquid barium and gas producing crystals were given in the erect position, as well as liquid barium in the prone oblique position in order to perform a double contrast upper GI examination. FINDINGS: The senior accounting clerk film shows no organomegaly or pathological masses. The intestinal gas pattern is unremarkable. The oral and pharyngeal stages of deglutition were unremarkable. Esophageal transport is prompt and efficient and there is no evidence of esophagitis, stricture, or mucosal ring. There is no evidence of a hiatal hernia. There is no gastroesophageal reflux noted . The stomach riggs are normally outlined. The rugal folds are smooth and regular. There is no gastritis, neoplasm, or ulcerative disease. The duodenal riggs are normally outlined. The mucosal folds are smooth and regular. There is no duodenitis, peptic ulcer disease or neoplasm. The visualized portion of the proximal small bowel appears normal in course and caliber. IMPRESSION: Unremarkable upper GI exam. 0.7 minutes of fluoroscopy time was utilized for this procedure. Some fluoroscopic images are performed with last image hold technology. These images require no additional radiation. <Electronically signed by Lisa Lott > 10/13/20 1539 <Electronically signed by Terence Wilson > 10/13/20 [id number]
== END ==
LOC: M RAD 09:04
PROVIDERS: ATTEND Physician Assistant
DX: R10.9 Unspecified abdominal pain (principal)

== ENCOUNTER → 2020-11-18 | Outpatient (CLI) | payer OTHER ==
[~2020-11-18] MED LIST changes: -E-Z-GAS II EFFERVESCENT PACKET (SODIUM BICARB./CITRIC ACID/SIMETHICONE) As Ordered ONE; -E-Z-HD 98% w/w 340GM SUSP BTL As Ordered ONE; -E-Z-PAQUE 96% w/w SUSP 176GM BTL As Ordered ONE
== END ==
LOC: M LABSMTC 11:12
PROVIDERS: ATTEND Pediatrics
DX: Z20.828 Contact with and (suspected) exposure to other viral communicable diseases (principal)

== ENCOUNTER → 2020-12-05 | Outpatient (CLI) | payer SELFPAY | LOC: M LABSMTC 10:41 | PROVIDERS: ATTEND Pediatrics | DX: Z20.822 Contact with and (suspected) exposure to COVID-19 (principal) ==

== ENCOUNTER → 2020-12-19 | Outpatient (REF) | payer SELFPAY | LOC: M LABSMTC 02:12 → EDSTATUS 12-20 09:50 → M LABSMTC 12-20 09:58 | PROVIDERS: ATTEND Family Medicine | DX: Z20.822 Contact with and (suspected) exposure to COVID-19 (principal) ==

== ENCOUNTER → 2021-01-31 | Outpatient (CLI) | payer SELFPAY ==
[~2021-01-31] MED LIST changes: +CHLO125TA PO; +HYDR-3363 PO; +PRIL20TA2 PO; +VITAD400CA PO; +VITMTA PO; +ZOFR4TAB16 PO
== END ==
LOC: M LABSMTC 10:08
PROVIDERS: ATTEND Anesthesiology
DX: Z01.812 Encounter for preprocedural laboratory examination (principal); Z20.822 Contact with and (suspected) exposure to COVID-19

== ENCOUNTER 2021-02-05 06:37 | Day surgery (SDC) | payer OTHER ==
[~2021-02-05] VITALS: Ht 160 cm; Wt 80.7 kg
[2021-02-05] MEDS ORDERED: NS 1,000 ML IV ONE (07:00)
[2021-02-05] MEDS ORDERED: propofoL 200 MG/20 ML VIAL As Ordered ONE (07:24)
[2021-02-05] MEDS ORDERED: fentaNYL 100 MCG/2 ML INJECTION (J3010) As Ordered ONE (07:24)
[2021-02-05] MEDS ORDERED: LIDOCAINE 2% 100MG/5ML SDV (FOR ANES.) As Ordered ONE (07:24)
[2021-02-05] MEDS ORDERED: ONDANSETRON 4MG/2ML VIAL As Ordered ONE (07:37)
--- NOTE | 2021-02-05 08:11 | ROOR ---
Patient Name: Makenzie Koenig Procedure Date: 02/05/2021 7:37 AM Date of : 1965 Age: 55 Room: [facility] Gender: Female Note Status: Finalized Procedure: Colonoscopy Indications: Abdominal pain in the left upper quadrant Providers: Jamie Donahue Jr, MD Referring MD: PATRICIA LO MD Requesting Provider: Medicines: Propofol per Anesthesia Complications: No immediate complications. Procedure: Pre-Anesthesia Assessment: - Prior to the procedure, a History and Physical was performed, and patient medications and allergies were reviewed. The patient is competent. The risks and benefits of the procedure and the sedation options and risks were discussed with the patient. All questions were answered and informed consent was obtained. Patient identification and proposed procedure were verified by the physician and the nurse in the pre-procedure area and in the procedure room. Mental Status Examination: alert and oriented. Airway Examination: normal oropharyngeal airway and neck mobility. Respiratory Examination: clear to auscultation. CV Examination: normal. ASA Grade Assessment: II - A patient with mild systemic disease. After reviewing the risks and benefits, the patient was deemed in satisfactory condition to undergo the procedure. The anesthesia plan was to use moderate sedation / analgesia (conscious sedation). Immediately prior to administration of medications, the patient was re-assessed for adequacy to receive sedatives. The heart rate, respiratory rate, oxygen saturations, blood pressure, adequacy of pulmonary ventilation, and response to care were monitored throughout the procedure. The physical status of the patient was re-assessed after the procedure. The Colonoscope was introduced through the anus and advanced to the cecum, identified by appendiceal orifice and ileocecal valve. The colonoscopy was performed without difficulty. The patient tolerated the procedure well. The quality of the bowel preparation was adequate. Findings: The rectum, recto-sigmoid colon, descending colon, transverse colon, cecum, appendiceal orifice and ileocecal valve appeared normal. Multiple small and large-mouthed diverticula were found in the sigmoid colon. A few small-mouthed diverticula were found in the ascending colon. A small polyp was found in the transverse colon. The polyp was removed with a cold snare. Resection and retrieval were complete. Impression: - The rectum, recto-sigmoid colon, descending colon, transverse colon, cecum, appendiceal orifice and ileocecal valve are normal. - Diverticulosis in the sigmoid colon. - Diverticulosis in the ascending colon. - One small polyp in the transverse colon, removed with a cold snare. Resected and retrieved. Recommendation: - Discharge patient to home (ambulatory). - Repeat colonoscopy at appointment to be scheduled for surveillance based on pathology results. Procedure Code(s): --- Professional --- 93914, Colonoscopy, flexible; with removal of tumor(s), polyp(s), or other lesion(s) by snare technique Diagnosis Code(s): --- Professional --- K63.5, Polyp of colon R10.12, Left upper quadrant pain K57.30, Diverticulosis of large intestine without perforation or abscess without bleeding CPT copyright 2019 [employer]. All rights reserved. The codes documented in this report are preliminary and upon clinical coder review may be revised to meet current compliance requirements. Jamie Donahue MD Jamie Donahue Jr, MD 02/05/2021 8:11:07 AM Electronically signed by Jamie Donahue Jr, MD Number of Addenda: 0 Note Initiated On: 02/05/2021 7:37 AM Estimated Blood Loss: Estimated blood loss: none.
--- NOTE | 2021-02-05 08:12 | ROOR ---
Patient Name: Makenzie Koenig Procedure Date: 02/05/2021 7:36 AM Date of : 1965 Age: 55 Room: [facility] Gender: Female Note Status: Finalized Procedure: Upper GI endoscopy Indications: Abdominal pain in the left upper quadrant, Suspected esophageal reflux Providers: Jamie Donahue Jr, MD Referring MD: PATRICIA LO MD Requesting Provider: Medicines: Propofol per Anesthesia Complications: No immediate complications. Procedure: Pre-Anesthesia Assessment: - Prior to the procedure, a History and Physical was performed, and patient medications and allergies were reviewed. The patient is competent. The risks and benefits of the procedure and the sedation options and risks were discussed with the patient. All questions were answered and informed consent was obtained. Patient identification and proposed procedure were verified by the physician and the nurse in the pre-procedure area and in the procedure room. Mental Status Examination: alert and oriented. Airway Examination: normal oropharyngeal airway and neck mobility. Respiratory Examination: clear to auscultation. CV Examination: normal. ASA Grade Assessment: II - A patient with mild systemic disease. After reviewing the risks and benefits, the patient was deemed in satisfactory condition to undergo the procedure. The anesthesia plan was to use moderate sedation / analgesia (conscious sedation). Immediately prior to administration of medications, the patient was re-assessed for adequacy to receive sedatives. The heart rate, respiratory rate, oxygen saturations, blood pressure, adequacy of pulmonary ventilation, and response to care were monitored throughout the procedure. The physical status of the patient was re-assessed after the procedure. The Endoscope was introduced through the mouth, and advanced to the second part of duodenum. The upper GI endoscopy was accomplished without difficulty. The patient tolerated the procedure well. Findings: The upper third of the esophagus, middle third of the esophagus and lower third of the esophagus were normal. One benign-appearing, intrinsic mild stenosis was found at the gastroesophageal junction. The cardia, gastric fundus, gastric body and gastric antrum were normal. Patchy mildly erythematous mucosa without bleeding was found in the prepyloric region of the stomach. Biopsies were taken with a cold forceps for histology. Scattered moderate inflammation characterized by congestion (edema) and friability was found in the first portion of the duodenum. The ampulla and second portion of the duodenum were normal. Impression: - Normal upper third of esophagus, middle third of esophagus and lower third of esophagus. - Benign-appearing esophageal stenosis. - Normal cardia, gastric fundus, gastric body and antrum. - Erythematous mucosa in the prepyloric region of the stomach. Biopsied. - Duodenitis. - Normal ampulla and second portion of the duodenum. Recommendation: - Discharge patient to home (ambulatory). - Return to my office at appointment to be scheduled. Procedure Code(s): --- Professional --- 66811, Esophagogastroduodenoscopy, flexible, transoral; with biopsy, single or multiple Diagnosis Code(s): --- Professional --- K22.2, Esophageal obstruction K31.89, Other diseases of stomach and duodenum K29.80, Duodenitis without bleeding R10.12, Left upper quadrant pain CPT copyright 2019 [employer]. All rights reserved. The codes documented in this report are preliminary and upon dredge mate review may be revised to meet current compliance requirements. Jamie Donahue MD Jamie Donahue Jr, MD 02/05/2021 8:12:08 AM Electronically signed by Jamie Donahue Jr, MD Number of Addenda: 0 Note Initiated On: 02/05/2021 7:36 AM Estimated Blood Loss: Estimated blood loss: none.
[2021-02-05 08:25] VITALS: BP 120/74
== END 2021-02-05 08:36 | disposition home or self-care (01) ==
LOC: M OPP 06:37
PROVIDERS: ATTEND Surgery
DX: D12.6 Benign neoplasm of colon, unspecified (principal); K57.30 Diverticulosis of large intestine without perforation or abscess without bleeding; R10.12 Left upper quadrant pain; K22.2 Esophageal obstruction; K31.89 Other diseases of stomach and duodenum; K29.80 Duodenitis without bleeding; Z79.899 Other long term (current) drug therapy; Z88.5 Allergy status to narcotic agent; Z88.8 Allergy status to other drugs, medicaments and biological substances; Z88.0 Allergy status to penicillin; Z91.013 Allergy to seafood
CPT/HCPCS: 43239; 45385; 88305; J2405; J3010

== ENCOUNTER → 2021-03-06 | Outpatient (REF) | payer OTHER | LOC: M LAB REF 15:29 | PROVIDERS: ATTEND Dermatology | DX: L82.1 Other seborrheic keratosis (principal) ==

== ENCOUNTER → 2021-05-07 | Outpatient (CLI) | payer OTHER ==
[~2021-05-07] MED LIST changes: +ISOVUE-370 76% 100ML VIAL As Ordered ONE
--- NOTE | 2021-05-08 06:05 | REP ---
INDICATION: SUPERCLAVICULAR MASS COMPARISON: None TECHNIQUE: Axial contrast enhanced images from the thoracic inlet to the upper abdomen with coronal and sagittal reformations using 75 ml Isovue [address] intravenous contrast [address]. [address] examination was performed using the following dose reduction techniques: Automated exposure control, adjustment of mA and/or kv according to the patient's size, and use of iterative reconstruction technique. FINDINGS: The bilateral thoracic inlet and supraclavicular regions appear normal and symmetric. No obvious associated mass lesion is appreciated. Lung bernstein are well aerated and relatively clear. Minimal linear fibroatelectatic changes at the lingula noted. No acute consolidation, significant nodule or mass. No pleural effusion. No pneumothorax. Tracheobronchial tree is patent. No axillary, hilar, or mediastinal adenopathy. Mediastinum demonstrates normal thoracic aorta, pulmonary vasculature, and heart/pericardium. Bilateral mammoplasty. Musculoskeletal structures intact and without acute osseous abnormality. Limited upper abdomen demonstrates normal bilateral adrenal glands and diffuse hepatosteatosis. IMPRESSION: Normal contrast-enhanced chest CT. No acute mediastinal or pleuroparenchymal process. <Electronically signed by Javier Reed > 05/08/21 0602
== END ==
LOC: M RAD 15:22
PROVIDERS: ATTEND Internal Medicine
DX: D48.5 Neoplasm of uncertain behavior of skin (principal)
CPT/HCPCS: 71260; Q9967

== ENCOUNTER → 2021-07-03 | Outpatient (REF) | payer OTHER ==
[~2021-07-03] MED LIST changes: -ISOVUE-370 76% 100ML VIAL As Ordered ONE
== END ==
LOC: M LAB REF 13:37
PROVIDERS: ATTEND Internal Medicine Nephrology
DX: I10 Essential (primary) hypertension (principal); N28.1 Cyst of kidney, acquired

== ENCOUNTER → 2021-07-20 | Outpatient (REF) | LOC: M LABSMTC 12:02 | PROVIDERS: ATTEND Family Medicine | DX: Z11.52 Encounter for screening for COVID-19 (principal) ==

== ENCOUNTER → 2021-07-31 | Outpatient (REF) | payer OTHER | LOC: M SFHCWAGY 12:58 | PROVIDERS: ATTEND Obstetrics & Gynecology | DX: N90.89 Other specified noninflammatory disorders of vulva and perineum (principal) ==

== ENCOUNTER → 2021-08-14 | Outpatient (REF) | payer OTHER ==
[~2021-08-14] MED LIST changes: +LOSA100T45 PO; -LOSA100T50 PO
[2021-08-14 19:40] LABS: GC DNA AMPLIFICATION NEGATIVE (NEGATIVE)
== END ==
LOC: M SFHCWAGY 16:52
PROVIDERS: ATTEND Obstetrics & Gynecology
DX: R10.2 Pelvic and perineal pain (principal)

== ENCOUNTER → 2021-08-14 | Outpatient (CLI) | payer OTHER ==
[2021-08-14 18:59] LABS: HEPATITIS B CORE ANTIBODY IGM NEGATIVE (NEGATIVE); HEPATITIS B SURFACE ANTIGEN NEGATIVE (NEGATIVE); HEPATITIS C VIRUS ABY INDEX 0.1 INDEX (<0.8); HIV 1&2 SCREEN CENTAUR NEGATIVE (NEGATIVE)
== END ==
LOC: M PLALAB 13:16
PROVIDERS: ATTEND Obstetrics & Gynecology
DX: R10.2 Pelvic and perineal pain (principal)

== ENCOUNTER → 2021-08-14 | Outpatient (REF) | payer OTHER | LOC: M SFHCPLAZ 16:47 | PROVIDERS: ATTEND Obstetrics & Gynecology | DX: R10.2 Pelvic and perineal pain (principal) ==

== ENCOUNTER → 2021-08-19 | Outpatient (REF) | payer OTHER ==
[~2021-08-19] MED LIST changes: -LOSA100T45 PO; +LOSA100T50 PO
[2021-08-19 17:47] LABS: APPEARANCE, URINE CLEAR (CLEAR); BACTERIA, URINE AUTO NEGATIVE (NEGATIVE); BILIRUBIN, URINE AUTO NEGATIVE (NEGATIVE); BLOOD, URINE BLOOD NEGATIVE (NEGATIVE); CALCIUM OXALATE CRYSTALS SMALL; COLOR, URINE YELLOW (YELLOW); GLUCOSE, URINE (UA) AUTO NEGATIVE (NEGATIVE); KETONE, URINE AUTO NEGATIVE (NEGATIVE); LEUKOCYTE ESTERASE, URINE AUTO NEGATIVE (NEGATIVE); NITRITE, URINE AUTO NEGATIVE (NEGATIVE); PROTEIN, URINE AUTO NEGATIVE (NEGATIVE); RBC, URINE AUTO 1 /HPF (0-3); SPECIFIC GRAVITY URINE AUTO 1.019 (1.002-1.035); SQUAMOUS EPITHELIAL CELL UR AU 3 /HPF (0-6); UROBILINOGEN, URINE AUTO 0.2 mg/dL (0.0-2.0); WBC, URINE AUTO 4 /HPF (0-3)
== END ==
LOC: M SFHCWAGY 17:18
PROVIDERS: ATTEND Advanced Practice Midwife
DX: R30.0 Dysuria (principal)

== ENCOUNTER → 2021-08-28 | Outpatient (REF) | payer OTHER | LOC: M SFHCWAGY 13:05 | PROVIDERS: ATTEND Obstetrics & Gynecology | DX: N89.8 Other specified noninflammatory disorders of vagina (principal) ==

== ENCOUNTER → 2021-09-09 | Outpatient (CLI) | payer BC ==
--- NOTE | 2021-09-09 08:17 | REP ---
INDICATION: PELVIC PAIN COMPARISON: None. TECHNIQUE: Transabdominal pelvic ultrasound followed by transvaginal examination for better evaluation of the endometrium and adnexa with color Doppler evaluation of the ovaries. FINDINGS: Bladder is unremarkable and measures 7.1 x 4.0 x 6.6 cm. Normal anteverted uterus measures 7.8 x 3.9 x 4.6 cm. The endometrial complex measures 3.0 mm thickness. No discrete uterine or endometrial abnormalities are appreciated. Ovaries are not identified. No pelvic fluid or adnexal mass lesion appreciated. IMPRESSION: Normal uterus. Ovaries not visualized. No pelvic fluid. <Electronically signed by Javier Reed > 09/09/21 [id number]
== END ==
LOC: M WHC 06:59
PROVIDERS: ATTEND Obstetrics & Gynecology
DX: R10.2 Pelvic and perineal pain (principal)

== ENCOUNTER → 2021-09-21 | Outpatient (REF) | payer BC | LOC: M SFHCWAGY 13:20 | PROVIDERS: ATTEND Obstetrics & Gynecology | DX: Z12.4 Encounter for screening for malignant neoplasm of cervix (principal); Z01.419 Encounter for gynecological examination (general) (routine) without abnormal findings ==

== ENCOUNTER → 2021-09-21 | Outpatient (CLI) | payer BC ==
--- NOTE | 2021-09-21 12:59 | REPMRS ---
Patient History The patient states she had a clinical breast exam in August 2021. Patient is postmenopausal. Family history of unknown cancer at age 62 in mother, unknown cancer at age 83 in father, unknown cancer under age 50 in maternal uncle, pancreatic cancer at age 59 in sister. Implants in both breasts, 2002. Patient states no breast complaints today. Patient has signed MRS History Sheet. Digital Woman Screen Mammo: September 21, 2021 - Exam #: [id number] Bilateral CC and MLO view(s) were taken. Technologist: Susanne Gunter, Technologist Prior study comparison: January 21, 2020, bilateral digital woman screen mammo performed at [facility]. January 10, 2019, bilateral digital woman screen mammo performed at [facility]. FINDINGS: There are scattered fibroglandular densities. Screening. Digital screening (2D) mammography was performed bilaterally in the CC and MLO projections. Additionally, breast tomosynthesis (3D mammography) was performed bilaterally in the CC and MLO projections. Todays exam was compared to the prior exam/exams. By history, the patient has no complaints of a palpable breast abnormality or other significant breast complaints. The Volpara volumetric breast density category is B, there are scattered areas of fibroglandular densities. There are bilateral, retropectoral, saline breast prostheses. The breasts are unchanged in size and shape. There are no luis-soft tissue densities or spiculated masses. There is no internal architectural distortion. There are no suspicious luis-calcific clusters. Skin thickening or nipple retraction is not present. IMPRESSION: BI-RADS Category 2- Benign Findings. There is no evidence of malignant alteration of the breasts. Followup examination recommended in one year. This mammogram was read with the assistance of [facility],an FDA approved computer aided detection system for mammography. Negative x-ray reports should not delay surgical consultation if a dominant or clinically suspicious mass is present. Not all breast cancers can be identified by mammography. Therefore, we recommend that you continue to perform regular breast self-examination and physical examination and then promptly contact your physician of any concerns or changes. Adenosis and dense breasts may obscure an underlying neoplasm. No significant changes when compared with prior studies. Assessment: BI-RADS/ACR category 2 mammogram. Benign Findings. Recommendation Routine screening mammogram of both breasts in 1 year. Electronically Signed By: Milton Valle MD 09/21/21 0090
== END ==
LOC: M WHC 08:52
PROVIDERS: ATTEND Obstetrics & Gynecology
DX: Z12.31 Encounter for screening mammogram for malignant neoplasm of breast (principal); Z78.0 Asymptomatic menopausal state

== ENCOUNTER → 2021-10-06 | Outpatient (REF) | LOC: M EMP 08:31 | PROVIDERS: ATTEND Family Medicine | DX: Z11.52 Encounter for screening for COVID-19 (principal) ==

== ENCOUNTER → 2021-11-26 | Outpatient (REF) | LOC: M EMP 11:37 | PROVIDERS: ATTEND Family Medicine | DX: Z11.52 Encounter for screening for COVID-19 (principal) ==

== ENCOUNTER 2021-12-24 14:52 | Emergency (ER) | payer BC ==
[~2021-12-24] VITALS: Ht 160 cm; Wt 81.8 kg
[~2021-12-24 14:52] MED LIST changes: -GASTROGRAFIN SOLUTION 30ML (Q9963) As Ordered ONE; -ISOVUE-370 76% 100ML VIAL As Ordered ONE
[2021-12-24] MEDS ORDERED: NS 1,000 ML IV SCH (15:30)
[2021-12-24 16:04] LABS: BASO # 0.1 10^3/uL (0.0-0.2); BASO % 0.8 % (0.0-1.0); EOS # 0.2 10^3/uL (0.0-0.5); EOS % 1.9 % (0.0-3.0); HEMATOCRIT 41.5 % (36.0-47.0); HEMOGLOBIN 14.7 g/dl (12.0-15.5); LYMPH # 2.3 10^3/uL (1.5-5.0); LYMPH % 22.4 % (24.0-44.0); MEAN CORPUSCULAR HEMOGLOBIN 32.2 pg (27.0-33.0); MEAN CORPUSCULAR HGB CONC 35.4 g/dl (32.0-36.5); MONO # 0.6 10^3/uL (0.0-0.8); MONO % 5.6 % (2.0-8.0); PLATELET COUNT, AUTOMATED 254 10^3/uL (150-450); RED BLOOD COUNT 4.56 10^6/uL (4.00-5.40); WHITE BLOOD COUNT 10.1 10^3/uL (4.0-10.0)
[2021-12-24 16:28] LABS: CK-MB VALUE MASS < 1.0 NG/ML (<3.6); CPK CREATINE PHOSPHOKINASE 71 U/L (26-192); MB/CK RELATIVE INDEX 1.41 (< OR =4)
[2021-12-24 16:36] LABS: ALBUMIN 3.8 GM/DL (3.2-5.2); ALT/SGPT 95 U/L (12-78); BILIRUBIN,DIRECT 0.1 MG/DL (0.0-0.2); BILIRUBIN,TOTAL 0.4 MG/DL (0.2-1.0); BLOOD UREA NITROGEN 14 MG/DL (7-18); CALCIUM LEVEL 9.3 MG/DL (8.5-10.1); CARBON DIOXIDE LEVEL 27 MEQ/L (21-32); CHLORIDE LEVEL 105 MEQ/L (98-107); CREATININE FOR GFR 0.91 MG/DL (0.55-1.30); FREE T4 0.99 NG/DL (0.76-1.46); GLOMERULAR FILTRATION RATE > 60.0 (>51); GLUCOSE, FASTING 138 MG/DL (70-100); LIPASE 144 U/L (73-393); POTASSIUM SERUM 3.8 MEQ/L (3.5-5.1); SODIUM LEVEL 140 MEQ/L (136-145); TOTAL PROTEIN 7.5 GM/DL (6.4-8.2)
[2021-12-24 17:17] LABS: CK-MB VALUE MASS < 1.0 NG/ML (<3.6); CPK CREATINE PHOSPHOKINASE 70 U/L (26-192); MB/CK RELATIVE INDEX 1.43 (< OR =4)
[2021-12-24 19:15] VITALS: BP 126/62
== END 2021-12-24 19:15 | disposition home or self-care (01) ==
LOC: M ED 14:52
DX: R07.9 Chest pain, unspecified (principal); R42 Dizziness and giddiness; I10 Essential (primary) hypertension; Z88.1 Allergy status to other antibiotic agents; Z88.6 Allergy status to analgesic agent; Z88.8 Allergy status to other drugs, medicaments and biological substances; Z79.899 Other long term (current) drug therapy

== ENCOUNTER → 2021-12-24 | Outpatient (CLI) | payer BC ==
[~2021-12-24] MED LIST changes: +GASTROGRAFIN SOLUTION 30ML (Q9963) As Ordered ONE; +ISOVUE-370 76% 100ML VIAL As Ordered ONE; +LOSA100T45 PO; -LOSA100T50 PO
== END ==
LOC: M RAD 08:48
PROVIDERS: ATTEND Internal Medicine
DX: K57.30 Diverticulosis of large intestine without perforation or abscess without bleeding (principal)

== ENCOUNTER → 2022-03-22 | Outpatient (REF) | LOC: M LABSMTC 10:29 | PROVIDERS: ATTEND Family Medicine | DX: Z11.52 Encounter for screening for COVID-19 (principal) ==

== ENCOUNTER → 2022-03-26 | Outpatient (REF) | LOC: M LABSMTC 11:02 | PROVIDERS: ATTEND Family Medicine | DX: Z11.52 Encounter for screening for COVID-19 (principal) ==

== ENCOUNTER → 2022-04-27 | Outpatient (REF) | LOC: M EMP 09:56 | PROVIDERS: ATTEND Family Medicine | DX: Z11.52 Encounter for screening for COVID-19 (principal) ==

== ENCOUNTER → 2022-04-30 | Outpatient (REF) | LOC: M EMP 11:15 | PROVIDERS: ATTEND Family Medicine | DX: Z11.52 Encounter for screening for COVID-19 (principal) ==

== ENCOUNTER → 2022-05-12 | Outpatient (CLI) | payer BC | LOC: M WHC 06:55 | PROVIDERS: ATTEND Obstetrics & Gynecology | DX: N95.0 Postmenopausal bleeding (principal) ==

== ENCOUNTER → 2022-07-12 | Outpatient (CLI) | payer BC ==
[~2022-07-12] MED LIST changes: +ISOVUE-370 76% 100ML VIAL As Ordered ONE
== END ==
LOC: M RAD 12:26
PROVIDERS: ATTEND Internal Medicine
DX: R10.9 Unspecified abdominal pain (principal)
CPT/HCPCS: 74177; Q9967

== ENCOUNTER 2022-07-19 07:43 | Emergency (ER) | payer BC ==
[~2022-07-19] VITALS: Ht 160 cm; Wt 81.7 kg
[~2022-07-19 07:43] MED LIST changes: -ISOVUE-370 76% 100ML VIAL As Ordered ONE
[2022-07-19 07:44] VITALS: BP 139/95
== END 2022-07-19 08:54 | disposition left against medical advice (07) ==
LOC: M ED 07:43
DX: Z53.21 Procedure and treatment not carried out due to patient leaving prior to being seen by health care provider (principal)

== ENCOUNTER 2022-07-27 12:15 | Outpatient (RCR) | payer BC ==
[2022-07-28] MEDS ORDERED: CHLO125TA (09:23)
== END 2022-07-28 ==
LOC: M PT 12:15
PROVIDERS: ATTEND Orthopaedic Surgery
DX: M75.41 Impingement syndrome of right shoulder (principal)

== ENCOUNTER → 2022-08-15 | Outpatient (REF) | payer BC ==
[~2022-08-15] MED LIST changes: +CHLO125TA
== END ==
LOC: M LAB REF 17:38
PROVIDERS: ATTEND Physician Assistant Medical
DX: J02.9 Acute pharyngitis, unspecified (principal)

== ENCOUNTER → 2022-08-16 | Outpatient (REF) ==
[2022-08-16 12:45] LABS: RSV AMPLIFICATION NEGATIVE (NEGATIVE)
== END ==
LOC: M EMP 11:49
PROVIDERS: ATTEND Family Medicine
DX: Z11.52 Encounter for screening for COVID-19 (principal)

== ENCOUNTER 2022-08-19 12:15 | Outpatient (RCR) | payer BC | END 2022-08-27 | LOC: M PT 12:15 | PROVIDERS: ATTEND Orthopaedic Surgery | DX: S46.011D Strain of muscle(s) and tendon(s) of the rotator cuff of right shoulder, subsequent encounter (principal); W18.30XD Fall on same level, unspecified, subsequent encounter ==

== ENCOUNTER 2022-09-23 12:15 | Outpatient (RCR) | payer BC | END 2022-09-27 | LOC: M PT 12:15 | PROVIDERS: ATTEND Orthopaedic Surgery | DX: S46.011D Strain of muscle(s) and tendon(s) of the rotator cuff of right shoulder, subsequent encounter (principal); W18.30XD Fall on same level, unspecified, subsequent encounter; Y92.009 Unspecified place in unspecified non-institutional (private) residence as the place of occurrence of the external cause ==

== ENCOUNTER → 2022-10-11 | Outpatient (REF) ==
[2022-10-11 13:52] LABS: RSV AMPLIFICATION NEGATIVE (NEGATIVE)
== END ==
LOC: M LABSMTC 11:23
PROVIDERS: ATTEND Family Medicine
DX: Z11.52 Encounter for screening for COVID-19 (principal)

== ENCOUNTER 2022-10-26 12:01 | Outpatient (RCR) | payer BC | END 2022-10-27 | LOC: M PT 12:01 | PROVIDERS: ATTEND Orthopaedic Surgery | DX: S46.011D Strain of muscle(s) and tendon(s) of the rotator cuff of right shoulder, subsequent encounter (principal) ==

== ENCOUNTER → 2022-11-15 | Outpatient (REF) | LOC: M LABSMTC 11:01 | PROVIDERS: ATTEND Family Medicine | DX: Z11.52 Encounter for screening for COVID-19 (principal) ==

== ENCOUNTER 2022-11-25 12:06 | Outpatient (RCR) | payer BC | END 2022-11-27 | LOC: M PT 12:06 | PROVIDERS: ATTEND Orthopaedic Surgery | DX: M75.101 Unspecified rotator cuff tear or rupture of right shoulder, not specified as traumatic (principal) ==

== ENCOUNTER → 2022-12-03 | Outpatient (REF) | payer BC | LOC: M SFHCWAGY 13:05 | PROVIDERS: ATTEND Obstetrics & Gynecology | DX: Z12.4 Encounter for screening for malignant neoplasm of cervix (principal); Z01.419 Encounter for gynecological examination (general) (routine) without abnormal findings; Z77.9 Other contact with and (suspected) exposures hazardous to health ==

== ENCOUNTER → 2022-12-03 | Outpatient (CLI) | payer BC | LOC: M WHC 07:55 | PROVIDERS: ATTEND Obstetrics & Gynecology | DX: Z12.31 Encounter for screening mammogram for malignant neoplasm of breast (principal) ==

== ENCOUNTER → 2022-12-28 | Outpatient (RCR) | payer BC | LOC: M PT 12-02 13:17 | PROVIDERS: ATTEND Orthopaedic Surgery | DX: M75.41 Impingement syndrome of right shoulder (principal) ==

== ENCOUNTER → 2023-01-25 | Outpatient (RCR) | payer BC | LOC: M PT 01-06 12:15 | PROVIDERS: ATTEND Orthopaedic Surgery | DX: M75.41 Impingement syndrome of right shoulder (principal) ==

== ENCOUNTER 2023-02-17 14:40 | Outpatient (RCR) | payer BC | END 2023-02-25 | LOC: M PT 14:40 | PROVIDERS: ATTEND Orthopaedic Surgery | DX: M17.12 Unilateral primary osteoarthritis, left knee (principal); M54.50 Low back pain, unspecified ==

== ENCOUNTER → 2023-03-03 | Outpatient (REF) | payer BC ==
[2023-03-03 09:17] LABS: BASO # 0.1 10^3/uL (0.0-0.2); BASO % 0.9 % (0.0-1.0); EOS # 0.2 10^3/uL (0.0-0.5); EOS % 2.6 % (0.0-3.0); HEMATOCRIT 41.3 % (36.0-47.0); HEMOGLOBIN 14.2 g/dl (12.0-15.5); LYMPH # 1.9 10^3/uL (1.5-5.0); LYMPH % 28.8 % (24.0-44.0); MEAN CORPUSCULAR HEMOGLOBIN 31.4 pg (27.0-33.0); MEAN CORPUSCULAR HGB CONC 34.4 g/dl (32.0-36.5); MEAN CORPUSCULAR VOLUME 91.4 fl (80.0-96.0); MONO # 0.4 10^3/uL (0.0-0.8); NEUTROPHILS % 61.4 % (36.0-66.0); PLATELET COUNT, AUTOMATED 272 10^3/uL (150-450); RED BLOOD COUNT 4.52 10^6/uL (4.00-5.40); WHITE BLOOD COUNT 6.5 10^3/uL (4.0-10.0)
[2023-03-03 09:41] LABS: C REACTIVE PROTEIN QUANTITATIV 1.1 MG/DL (<1.0)
[2023-03-03 09:42] LABS: RHEUMATOID FACTOR QUANT 5.6 IU/ML (<14)
[2023-03-03 09:53] LABS: ERYTHROCYTE SEDIMENTATION RATE 10 mm/hr (0-30)
[2023-03-04 11:08] LABS: ANTINUCLEAR ANTIBODIES DIRECT Negative (Negative)
== END ==
LOC: M LAB REF 08:07
PROVIDERS: ATTEND Orthopaedic Surgery
DX: M54.50 Low back pain, unspecified (principal)

== ENCOUNTER 2023-03-22 12:07 | Outpatient (RCR) | payer BC | END 2023-03-27 | LOC: M PT 12:07 | PROVIDERS: ATTEND Orthopaedic Surgery | DX: M17.12 Unilateral primary osteoarthritis, left knee (principal); M54.50 Low back pain, unspecified ==

== ENCOUNTER 2023-04-12 12:10 | Outpatient (RCR) | payer BC ==
[~2023-04-12 12:10] MED LIST changes: -LOSA100T45 PO; +LOSA100T46 PO
== END 2023-04-27 ==
LOC: M PT 12:10
PROVIDERS: ATTEND Orthopaedic Surgery
DX: M17.12 Unilateral primary osteoarthritis, left knee (principal); M54.50 Low back pain, unspecified

== ENCOUNTER 2023-07-26 07:41 | Outpatient (RCR) | payer BC | END 2023-07-28 | LOC: M PT 07:41 | PROVIDERS: ATTEND Student in an Organized Health Care Education/Training Program | DX: M72.2 Plantar fascial fibromatosis (principal) ==

== ENCOUNTER 2023-08-14 08:17 | Emergency (ER) | payer BC ==
[~2023-08-14] VITALS: Ht 160 cm; Wt 84.5 kg
[2023-08-14] MEDS ORDERED: SEMA0.257 (08:26)
[2023-08-14 09:12] LABS: BASO # 0.1 10^3/uL (0.0-0.2); BASO % 0.7 % (0.0-1.0); EOS # 0.1 10^3/uL (0.0-0.5); EOS % 1.5 % (0.0-3.0); HEMATOCRIT 40.7 % (36.0-47.0); HEMOGLOBIN 14.8 g/dl (12.0-15.5); LYMPH # 1.5 10^3/uL (1.5-5.0); LYMPH % 17.8 % (24.0-44.0); MEAN CORPUSCULAR HEMOGLOBIN 31.7 pg (27.0-33.0); MEAN CORPUSCULAR HGB CONC 36.4 g/dl (32.0-36.5); MEAN CORPUSCULAR VOLUME 87.2 fl (80.0-96.0); MONO # 0.5 10^3/uL (0.0-0.8); MONO % 5.9 % (2.0-8.0); NEUTROPHILS # 6.3 10^3/uL (1.5-8.5); NEUTROPHILS % 73.5 % (36.0-66.0); PLATELET COUNT, AUTOMATED 240 10^3/uL (150-450); RED BLOOD COUNT 4.67 10^6/uL (4.00-5.40); WHITE BLOOD COUNT 8.6 10^3/uL (4.0-10.0)
[2023-08-14] MEDS: NS 1,000 ML IV ONE (09:23)
[2023-08-14 09:25] LABS: INR 1.05; PROTHROMBIN TIME 13.4 SECONDS (12.5-14.5)
[2023-08-14 09:26] LABS: PARTIAL THROMBOPLASTIN TIME 26.6 SECONDS (24.8-34.2)
[2023-08-14 09:43] LABS: LIPASE 40 U/L (12-53)
[2023-08-14 09:46] LABS: ALKALINE PHOSPHATASE 80 U/L (46-116); ALT/SGPT 54 U/L (7.0-40); AST/SGOT 21 U/L (<34); BILIRUBIN,DIRECT < 0.1 MG/DL (<0.4); BILIRUBIN,TOTAL 0.4 MG/DL (0.3-1.2); BLOOD UREA NITROGEN 19 MG/DL (9-23); CALCIUM LEVEL 8.7 MG/DL (8.5-10.1); CARBON DIOXIDE LEVEL 24 MMOL/L (20-31); CHLORIDE LEVEL 104 MMOL/L (98-107); GLOMERULAR FILTRATION RATE > 60.0 (>51); GLUCOSE, FASTING 248 MG/DL (60-100); POTASSIUM SERUM 3.7 MMOL/L (3.5-5.1); SODIUM LEVEL 139 MMOL/L (136-145); TOTAL PROTEIN 7.3 G/DL (5.7-8.2)
[2023-08-14 09:47] LABS: THYROID STIMULATING HORMONE 2.067 uIU/ML (0.55-4.78)
[2023-08-14 09:48] LABS: FREE T4 1.14 NG/DL (0.89-1.76)
[2023-08-14 09:59] LABS: CPK CREATINE PHOSPHOKINASE 94 U/L (34-145); MB/CK RELATIVE INDEX 1.06 (< OR =4)
[2023-08-14 10:46] LABS: CK-MB VALUE MASS < 1.0 NG/ML (<3.6)
[2023-08-14 10:48] LABS: CPK CREATINE PHOSPHOKINASE 83 U/L (34-145)
[2023-08-14 13:13] VITALS: BP 148/78; TEMP 98.4; O2SAT 96
== END 2023-08-14 13:19 | disposition home or self-care (01) ==
LOC: M ED 08:17
DX: I45.10 Unspecified right bundle-branch block (principal); R53.1 Weakness; E11.9 Type 2 diabetes mellitus without complications; I10 Essential (primary) hypertension; Z79.899 Other long term (current) drug therapy; Z88.0 Allergy status to penicillin; Z88.1 Allergy status to other antibiotic agents; Z88.5 Allergy status to narcotic agent; Z91.013 Allergy to seafood

== ENCOUNTER → 2023-12-06 | Outpatient (REF) | payer BC ==
[~2023-12-06] MED LIST changes: -CHLO125TA; +CLAR10CA3 PO; +MULTCHW14 PO; +ONDA-83 PO; +SEMA0.257 SQ
== END ==
LOC: M SFHCWAGY 10:33
PROVIDERS: ATTEND Obstetrics & Gynecology
DX: Z12.4 Encounter for screening for malignant neoplasm of cervix (principal)

== ENCOUNTER → 2023-12-06 | Outpatient (CLI) | payer BC | LOC: M WHC 07:33 | PROVIDERS: ATTEND Obstetrics & Gynecology | DX: Z12.31 Encounter for screening mammogram for malignant neoplasm of breast (principal) ==

== ENCOUNTER → 2024-03-08 | Outpatient (REF) | LOC: M EMP 12:52 | PROVIDERS: ATTEND Family Medicine | DX: Z11.52 Encounter for screening for COVID-19 (principal) ==

== ENCOUNTER → 2024-03-12 | Outpatient (REF) | LOC: M EMP 07:47 | PROVIDERS: ATTEND Family Medicine | DX: Z20.828 Contact with and (suspected) exposure to other viral communicable diseases (principal) ==

== ENCOUNTER → 2024-04-02 | Outpatient (REF) ==
[2024-04-02 13:09] LABS: RSV AMPLIFICATION NEGATIVE (NEGATIVE)
== END ==
LOC: M EMP 11:13
PROVIDERS: ATTEND Family Medicine
DX: Z11.52 Encounter for screening for COVID-19 (principal)

== ENCOUNTER → 2024-05-04 | Outpatient (REF) | payer BC ==
[2024-05-04 10:03] LABS: BASO # 0.1 10^3/uL (0.0-0.2); BASO % 1.2 % (0.0-1.0); EOS # 0.3 10^3/uL (0.0-0.5); EOS % 3.8 % (0.0-3.0); HEMATOCRIT 42.4 % (36.0-47.0); HEMOGLOBIN 14.8 g/dl (12.0-15.5); LYMPH # 2.1 10^3/uL (1.5-5.0); MEAN CORPUSCULAR HEMOGLOBIN 31.6 pg (27.0-33.0); MEAN CORPUSCULAR HGB CONC 34.9 g/dl (32.0-36.5); MEAN CORPUSCULAR VOLUME 90.6 fl (80.0-96.0); MONO # 0.4 10^3/uL (0.0-0.8); MONO % 5.9 % (2.0-8.0); NEUTROPHILS # 3.9 10^3/uL (1.5-8.5); NEUTROPHILS % 57.9 % (36.0-66.0); PLATELET COUNT, AUTOMATED 255 10^3/uL (150-450); RED BLOOD COUNT 4.68 10^6/uL (4.00-5.40); WHITE BLOOD COUNT 6.6 10^3/uL (4.0-10.0)
[2024-05-04 10:23] LABS: ALKALINE PHOSPHATASE 68 U/L (46-116); ALT/SGPT 57 U/L (7.0-40); AST/SGOT 20 U/L (<34); BILIRUBIN,TOTAL 0.7 MG/DL (0.3-1.2); BLOOD UREA NITROGEN 14 MG/DL (9-23); CALCIUM LEVEL 9.2 MG/DL (8.5-10.1); CARBON DIOXIDE LEVEL 27 MMOL/L (20-31); CHLORIDE LEVEL 106 MMOL/L (98-107); CHOLESTEROL LEVEL 208 MG/DL (<200); CHOLESTEROL RISK RATIO 4.54 (<5); CREATININE FOR GFR 0.66 MG/DL (0.55-1.30); GLOMERULAR FILTRATION RATE > 60.0 (>51); GLUCOSE, FASTING 137 MG/DL (60-100); HDL CHOLESTEROL 45.8 MG/DL (>40); LDL CHOLESTEROL 125.4 MG/DL (<100); NON-HDL-C 162.2 MG/DL; SODIUM LEVEL 140 MMOL/L (136-145); TOTAL PROTEIN 7.1 G/DL (5.7-8.2); TRIGLYCERIDES LEVEL 184 MG/DL (<150)
[2024-05-04 10:31] LABS: FERRITIN 80.7 NG/ML (7.3-270.7)
[2024-05-04 10:39] LABS: HEMOGLOBIN A1c 6.3 % (4.0-6.0)
== END ==
LOC: M LAB REF 09:14
PROVIDERS: ATTEND Internal Medicine
DX: E83.110 Hereditary hemochromatosis (principal); E11.9 Type 2 diabetes mellitus without complications

== ENCOUNTER → 2024-05-25 | Outpatient (REF) | LOC: M EMP 12:24 | PROVIDERS: ATTEND Family Medicine | DX: Z11.52 Encounter for screening for COVID-19 (principal) ==

== ENCOUNTER → 2024-07-09 | Outpatient (CLI) | payer BC | LOC: M RAD 09:45 | PROVIDERS: ATTEND Physician Assistant | DX: R14.0 Abdominal distension (gaseous) (principal); K76.0 Fatty (change of) liver, not elsewhere classified; N28.1 Cyst of kidney, acquired ==

== ENCOUNTER → 2024-07-11 | Outpatient (REF) | payer BC | LOC: M SFHCDERM 15:20 | PROVIDERS: ATTEND Physician Assistant | DX: L65.9 Nonscarring hair loss, unspecified (principal) ==

== ENCOUNTER → 2024-07-12 | Outpatient (REF) | payer BC ==
[2024-07-12 08:37] LABS: TOTAL 25(OH) VITAMIN D 35.7 NG/ML (20.0-100.0)
[2024-07-12 08:38] LABS: FREE T4 1.26 NG/DL (0.89-1.76); THYROID STIMULATING HORMONE 2.68 uIU/ML (0.55-4.78)
== END ==
LOC: M LAB REF 07:52
PROVIDERS: ATTEND Physician Assistant
DX: L65.9 Nonscarring hair loss, unspecified (principal)

== ENCOUNTER → 2024-09-07 | Outpatient (REF) | LOC: M EMP 14:13 | PROVIDERS: ATTEND Family Medicine | DX: Z11.52 Encounter for screening for COVID-19 (principal) ==

== ENCOUNTER → 2024-10-08 | Outpatient (CLI) | payer BC | LOC: M LAB 12:58 | PROVIDERS: ATTEND Physician Assistant | DX: L43.9 Lichen planus, unspecified (principal) ==

== ENCOUNTER → 2024-12-20 | Outpatient (CLI) | payer BC ==
[2024-12-20 14:35] LABS: THYROID STIMULATING HORMONE 2.456 uIU/ML (0.55-4.78)
[2024-12-20 15:53] LABS: FREE T4 1.21 NG/DL (0.89-1.76)
== END ==
LOC: M PLALAB 11:37
PROVIDERS: ATTEND Obstetrics & Gynecology
DX: Z12.4 Encounter for screening for malignant neoplasm of cervix (principal)

== ENCOUNTER → 2024-12-20 | Outpatient (CLI) | payer BC | LOC: M WHC 09:12 | PROVIDERS: ATTEND Obstetrics & Gynecology | DX: Z12.31 Encounter for screening mammogram for malignant neoplasm of breast (principal) ==

== ENCOUNTER → 2025-02-26 | Outpatient (REF) | payer BC ==
[2025-02-26 15:31] LABS: BASO # 0.1 10^3/uL (0.0-0.2); BASO % 0.8 % (0.0-1.0); EOS # 0.2 10^3/uL (0.0-0.5); HEMATOCRIT 39.7 % (36.0-47.0); HEMOGLOBIN 14.1 g/dl (12.0-15.5); LYMPH # 1.8 10^3/uL (1.5-5.0); MEAN CORPUSCULAR HEMOGLOBIN 32.1 pg (27.0-33.0); MEAN CORPUSCULAR HGB CONC 35.5 g/dl (32.0-36.5); MEAN CORPUSCULAR VOLUME 90.4 fl (80.0-96.0); MONO # 0.3 10^3/uL (0.0-0.8); MONO % 4.8 % (2.0-8.0); NEUTROPHILS # 4.7 10^3/uL (1.5-8.5); NEUTROPHILS % 66.3 % (36.0-66.0); PLATELET COUNT, AUTOMATED 286 10^3/uL (150-450); RED BLOOD COUNT 4.39 10^6/uL (4.00-5.40); WHITE BLOOD COUNT 7.1 10^3/uL (4.0-10.0)
[2025-02-26 16:07] LABS: PERCENT SATURATION 22.8 % (13.2-45.0)
[2025-02-26 16:10] LABS: THYROID STIMULATING HORMONE 1.84 uIU/ML (0.55-4.78)
== END ==
LOC: M LAB REF 15:06
PROVIDERS: ATTEND Dermatology
DX: L65.9 Nonscarring hair loss, unspecified (principal)

== ENCOUNTER → 2025-06-06 | Outpatient (REF) | payer BC ==
[~2025-06-06] MED LIST changes: +TIRZ7.5P
[2025-06-06 11:12] LABS: ESTIMATED AVERAGE GLUCOSE 117.0 MG/DL (60-110)
[2025-06-06 11:14] LABS: FREE T4 1.27 NG/DL (0.89-1.76)
[2025-06-06 11:15] LABS: THYROID PEROXIDASE ANTIBODY 179.0 U/ML (<60.0)
[2025-06-08 01:52] LABS: UNITSIGA FOR GLIADIN IGA < 1.0 U/mL (<15.0); UNITSIGG FOR GLIADIN IGG < 1.0 U/mL (<15.0)
[2025-06-10 17:38] LABS: THRYOGLOBULIN ANTIBODIES (ATA) < 1 IU/mL (< or = 1); THYROGLOBULIN QUANTITATIVE 24.3 ng/mL (2.8-40.9)
[2025-06-11 17:37] LABS: THYROID STIMULATING IMMUNOGLOB < 89 % baseline (<140)
== END ==
LOC: M LAB REF 10:18
PROVIDERS: ATTEND Internal Medicine Endocrinology, Diabetes & Metabolism
DX: E06.3 Autoimmune thyroiditis (principal)

== ENCOUNTER → 2025-06-11 | Outpatient (REF) | payer BC ==
[2025-06-11 17:21] LABS: CALCIUM LEVEL 9.0 MG/DL (8.5-10.1); CARBON DIOXIDE LEVEL 27 MMOL/L (20-31); CHLORIDE LEVEL 103 MMOL/L (98-107); CREATININE FOR GFR 0.75 MG/DL (0.55-1.30); GLOMERULAR FILTRATION RATE > 90.0 (>51); POTASSIUM SERUM 3.6 MMOL/L (3.5-5.1); SODIUM LEVEL 143 MMOL/L (136-145)
== END ==
LOC: M LAB REF 14:38
PROVIDERS: ATTEND Ophthalmology
DX: H02.413 Mechanical ptosis of bilateral eyelids (principal)

== ENCOUNTER → 2025-07-09 | Outpatient (CLI) | payer BC | LOC: M WHC 08:47 | PROVIDERS: ATTEND Nurse Practitioner Family | DX: E06.3 Autoimmune thyroiditis (principal); E04.2 Nontoxic multinodular goiter ==

== ENCOUNTER → 2025-08-24 | Day surgery (SDC) | payer BC ==
[~2025-08-24] VITALS: Ht 160 cm; Wt 82.6 kg
[~2025-08-24] MED LIST changes: +ACETAMINOPHEN 1000MG/100ML IV BAG As Ordered ONE; +ISOVUE-370 76% 100 ML VIAL As Ordered ONE; +KETOROLAC 30 MG/ML 1 ML VIAL As Ordered ONE; +LIDOCAINE 2% 100 MG/5 ML SDV (FOR ANES.) As Ordered ONE; +LR 1,000 ML IV SCH; +ONDANSETRON 4MG 2ML VIAL As Ordered ONE; +SUCCINYLCHOLINE 100MG/5ML SYRINGE As Ordered ONE; -TIRZ7.5P; +TIRZ7.5P SC; +dexAMETHasone 4 MG/ML 1 ML VIAL As Ordered ONE
[2025-08-24] MEDS: MAALOX 30 ML SUSP *UDC PO ONE (11:43)
[2025-08-24] MEDS: PANTOPRAZOLE 40MG VIAL IV ONE (11:43)
[2025-08-24] MEDS: LIDOCAINE VISCOUS 2% SOLN 15 ML UDC PO ONE (11:43)
[2025-08-24 11:47] LABS: BASO # 0.1 10^3/uL (0.0-0.2); BASO % 0.7 % (0.0-1.0); EOS # 0.2 10^3/uL (0.0-0.5); EOS % 1.9 % (0.0-3.0); LYMPH # 1.9 10^3/uL (1.5-5.0); LYMPH % 19.1 % (24.0-44.0); MONO # 0.6 10^3/uL (0.0-0.8); MONO % 5.6 % (2.0-8.0); NEUTROPHILS # 7.4 10^3/uL (1.5-8.5); NEUTROPHILS % 72.5 % (36.0-66.0); PLATELET COUNT, AUTOMATED 272 10^3/uL (150-450)
[2025-08-24 12:13] LABS: ALT/SGPT 40 U/L (7.0-40); AST/SGOT 22 U/L (<34); CALCIUM LEVEL 9.5 MG/DL (8.5-10.1); CARBON DIOXIDE LEVEL 29 MMOL/L (20-31); CHLORIDE LEVEL 103 MMOL/L (98-107); CREATININE FOR GFR 0.68 MG/DL (0.55-1.30); GLOMERULAR FILTRATION RATE > 90.0 (>51); POTASSIUM SERUM 4.1 MMOL/L (3.5-5.1); SODIUM LEVEL 143 MMOL/L (136-145)
[2025-08-24] MEDS: NS (Normal Saline) 0.9% 1,000 ML IV SCH (14:00)
[2025-08-24 16:40] VITALS: TEMP 98.6
[2025-08-24 16:46] VITALS: BP 148/76; O2SAT 92
== END | disposition home or self-care (01) ==
LOC: M ED 10:40 → M SDC 14:43
PROVIDERS: ATTEND Internal Medicine Gastroenterology
DX: T18.128A Food in esophagus causing other injury, initial encounter (principal); Y92.9 Unspecified place or not applicable; K20.80 Other esophagitis without bleeding; K22.2 Esophageal obstruction; I10 Essential (primary) hypertension; E11.9 Type 2 diabetes mellitus without complications; E07.9 Disorder of thyroid, unspecified; R12 Heartburn; Z88.0 Allergy status to penicillin; Z88.1 Allergy status to other antibiotic agents; Z88.5 Allergy status to narcotic agent; Z91.013 Allergy to seafood; Z79.899 Other long term (current) drug therapy
CPT/HCPCS: 43239; 43247; 74177; 80047; 80048; 80076; 83690; 84484; 85025; 88305; 93005; 93041; 96374; 99285; J0131; J0330; J1100; J1885; J2405; J2470; J3010; Q9967

== ENCOUNTER → 2025-08-26 | Outpatient (CLI) | payer BC ==
[~2025-08-26] MED LIST changes: -ACETAMINOPHEN 1000MG/100ML IV BAG As Ordered ONE; -ISOVUE-370 76% 100 ML VIAL As Ordered ONE; -KETOROLAC 30 MG/ML 1 ML VIAL As Ordered ONE; -LIDOCAINE 2% 100 MG/5 ML SDV (FOR ANES.) As Ordered ONE; -LR 1,000 ML IV SCH; -ONDANSETRON 4MG 2ML VIAL As Ordered ONE; -SUCCINYLCHOLINE 100MG/5ML SYRINGE As Ordered ONE; -dexAMETHasone 4 MG/ML 1 ML VIAL As Ordered ONE
== END ==
LOC: M RAD 16:10
PROVIDERS: ATTEND Internal Medicine
DX: J39.1 Other abscess of pharynx (principal); J34.2 Deviated nasal septum; J34.89 Other specified disorders of nose and nasal sinuses

== ENCOUNTER 2025-09-30 10:31 | Day surgery (SDC) | payer BC ==
[~2025-09-30] VITALS: Ht 161.3 cm; Wt 83.2 kg
[2025-09-30] MEDS ORDERED: LIDOCAINE 2% 100 MG/5 ML SDV (FOR ANES.) As Ordered ONE (11:54)
[2025-09-30 12:26] VITALS: TEMP 97.1
[2025-09-30 12:42] VITALS: BP 140/84; O2SAT 94
== END 2025-09-30 12:49 | disposition home or self-care (01) ==
LOC: M OPP 10:31
PROVIDERS: ATTEND Internal Medicine Gastroenterology
DX: K22.2 Esophageal obstruction (principal); R13.10 Dysphagia, unspecified; G47.30 Sleep apnea, unspecified; Z88.0 Allergy status to penicillin; Z88.1 Allergy status to other antibiotic agents; Z88.5 Allergy status to narcotic agent; Z91.013 Allergy to seafood; Z79.85 Long-term (current) use of injectable non-insulin antidiabetic drugs; Z79.899 Other long term (current) drug therapy
CPT/HCPCS: 43249; A4649

== ENCOUNTER → 2025-11-15 | Outpatient (REF) ==
[2025-11-15 11:24] LABS: SOFIA COVID ANTIGEN NEGATIVE (NEGATIVE)
== END ==
LOC: M EMP 09:57
PROVIDERS: ATTEND Family Medicine
DX: Z01.89 Encounter for other specified special examinations (principal)